=== PATIENT | male | born 1945 ===

== ENCOUNTER 2016-09-27 15:59 | Observation (INO) | payer SELFPAY ==
--- NOTE | 2016-09-27 16:47 | ED PDOC ---
Arrival/HPI - General Chief Complaint: Headache Time Seen by Provider: 09/27/16 16:23 Historian: Patient - History of Present Illness Narrative History of Present Illness (Text): 09/27/16 16:48 A 70 year old male, whose past medical history includes hypertension, presents to the emergency department complaining of slow onset of headache and daily episodes of dizziness for a month. Patient notes dizziness is positional. Patient is compliant with Losartan medications. Sent to emergency department by PMD. Denies any nausea, vomiting, chest pain or any other complaints at this time. PMD: Dr. Cummings Time/Duration: Other (month) Symptom Onset: Sudden Symptom Course: Unchanged Activities at Onset: Rest Context: Home Past Medical History - Provider Review Nursing Documentation Reviewed: Yes - Infectious Disease Hx of Infectious Diseases: None - Cardiac Hx Cardiac Disorders: Yes Hx Hypertension: Yes - Pulmonary Hx Respiratory Disorders: No - Neurological Hx Neurological Disorder: No - HEENT Hx HEENT Disorder: No - Renal Hx Renal Disorder: No - Endocrine/Metabolic Hx Endocrine Disorders: No - Hematological/Oncological Hx Blood Disorders: No - Integumentary Hx Dermatological Disorder: No - Musculoskeletal/Rheumatological Hx Musculoskeletal Disorders: No - Gastrointestinal Hx Gastrointestinal Disorders: No - Genitourinary/Gynecological Hx Genitourinary Disorders: No - Psychiatric Hx Psychophysiologic Disorder: No Hx Substance Use: No - Surgical History Other/Comment: intestinal sx, pt "doesn't know why". - Anesthesia Hx Anesthesia: Yes Hx Anesthesia Reactions: No Family/Social History - Physician Review Nursing Documentation Reviewed: Yes Family/Social History: No Known Family HX Smoking Status: Heavy Smoker > 10 Cigarettes Daily Hx Alcohol Use: No Hx Substance Use: No Allergies/Home Meds Allergies/Adverse Reactions: Allergies No Known Allergies Allergy (Verified 09/27/16 16:09) Home Medications: Home Meds Medication Instructions Recorded Confirmed Losartan [Cozaar] 100 mg PO DAILY 09/27/16 09/27/16 Review of Systems - Physician Review All systems were reviewed & negative as marked: Yes Physical Exam - Physical Exam Narrative Physical Exam (Text): 09/27/16 16:47- Review of Systems Constitutional: Normal. absent: Fatigue, Weight Change, Fevers Eyes: Normal ENT: Normal Respiratory: Normal absent: SOB, Cough, Sputum Cardiovascular: Normal absent: Chest pain, Palpitations, Syncope Gastrointestinal: Normal absent: Abdominal pain, Diarrhea, Nausea, Vomiting Genitourinary: Normal. absent: Dysuria, Frequency, Hematuria Musculoskeletal: Normal. absent: Arthralgias, Back Pain, Neck Pain Skin: Normal Neurological: dizziness, headache absent: Focal Weakness Endocrine: Normal Hemo/Lymphatic: Normal Psychiatric: Normal - Physical exam Patient appears age appropriate, speaking full sentences without difficulty - Systems Exam Head: Present: Atraumatic, Normocephalic Pupils: Present: PERRL Extraocular Muscles: Present: EOMI Conjunctiva: Present: Normal Mouth: Present: Moist Mucous Membranes Neck: Present: Normal Range of Motion. No: MIDLINE TENDERNESS, Paraspinal Tenderness Respiratory/Chest: Present: Clear to Auscultation, Good Air Exchange. No: Respiratory Distress, Accessory Muscle Use, Tachypnic Cardiovascular: Present: Regular Rate and Rhythm, Normal S1, S2, Peripheral Pulses Present. No: Murmurs Abdomen: Present: Normal Bowel Sounds, No: Tenderness, Peritoneal Signs, Rebound, Guarding, Distention Back: Present: Normal Inspection. No: Midline Tenderness, Paraspinal Tenderness Upper Extremity: Present: Normal Inspection. No: Cyanosis, Edema Lower Extremity: Present: Normal Inspection. No: Edema Neurological: Present: GCS=15, Speech Normal, cranial nerves II through XII fully intact with no cerebellar abnormality, neuro-sensory fully intact. HINTS testing unremarkable. No focal neurological deficits. Skin: Present: Warm, Dry, Normal Color. No: Rashes Lymphatic: Present: OX3, NI, NC Psychiatric: Present: Alert, Oriented x 3, Normal Insight, Normal Concentration Vital Signs Reviewed: Yes Vital Signs Temp Pulse Resp BP Pulse Ox 09/27/16 20:25 60 214/89 H 09/27/16 19:30 60 18 197/112 H 96 09/27/16 19:20 65 197/112 H 09/27/16 18:37 60 16 188/109 H 97 09/27/16 17:20 64 16 179/95 H 96 09/27/16 16:09 98.7 F 74 19 220/80 H 97 Temperature: Afebrile Blood Pressure: Hypertensive Pulse: Regular Respiratory Rate: Normal Appearance: Positive for: Well-Appearing, Non-Toxic, Comfortable Pain Distress: None Mental Status: Positive for: Alert and Oriented X 3 Medical Decision Making ED Course and Treatment: 09/27/16 16:44 Impression: A 70 year old male with dizziness and headache. HINTS testing unremarkable. No focal neurological deficits. Differential Diagnosis included but are not limited to: vertigo vs. hypertension Plan: -- EKG -- chest xray -- CT head -- labs -- Urinalysis -- Antivert -- Reassess and disposition Progress Notes: EKG shows NSR at [address]-segment elevations, normal intervals. Interpreted by me. 09/27/16 17:29 chest xray: Creator : AMADO ROSALES MD IMPRESSION: Mild pulmonary venous congestion. No lobar pneumonia. 09/27/16 18:42 CT HEAD WITHOUT CONTRAST Creator : AMADO ROSALES MD IMPRESSION: No acute intracranial abnormality. 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 Moderate chronic microangiopathic changes and mild age-related global parenchymal volume loss. 09/27/16 20:[address] Cummings, asked to admit to hospitalist 09/27/16 20:[address] Hinton, accepted pt to remote tele pt in no distress with no focal neurological deficits on reeval aware of and agrees with plan - Lab Interpretations Lab Results: 09/27/16 16:33 09/27/16 16:33 Lab Results 09/27/16 18:50: Urine Color Yellow, Urine Appearance Clear, Urine pH 6.0, Ur Specific [place] 1.020, Urine Protein Negative, Urine Glucose (UA) Negative, Urine Ketones Negative, Urine Blood Negative, Urine Nitrate Negative, Urine Bilirubin Negative, Urine Urobilinogen 1.0 H, Ur Leukocyte Esterase Negative 09/27/16 16:33: Sodium 141, Potassium 4.0, Chloride 105, Carbon Dioxide 27, Anion Gap 13, BUN 24 H, Creatinine 1.1, Est GFR ( Amer) > 60, Est GFR ( Non-Af Amer) > 60, Random Glucose 100, Calcium 9.2, Total Bilirubin 0.4, AST 26 , ALT 27, Alkaline Phosphatase 125, Total Protein 7.8, Albumin 3.9, Globulin 3.9 , Albumin/Globulin Ratio 1.0 L 09/27/16 16:33: PT 11.0, INR 1.02, APTT 29.1 09/27/16 16:33: WBC 6.6, RBC 4.38, Hgb 13.2 L, Hct 40.1 L, MCV 91.6, MCH 30.1, MCHC 32.9, RDW 13.9, Plt Count 196, MPV 12.7 H, Gran % 44.6 L, Lymph % (Auto) 34.3, [place] % (Auto) 10.9 H, Eos % (Auto) 9.7 H, Baso % (Auto) 0.5, Gran # 2.95, Lymph # 2.3, [place] # 0.7 H, Eos # 0.6, Baso # 0.03 I have reviewed the lab results: Yes - RAD Interpretation Radiology Orders: 09/27/16 16:33 HEAD W/O CONTRAST [CT] Stat CHEST PORTABLE [RAD] Stat - EKG Interpretation Interpreted by ED Physician: Yes Type: 12 lead EKG - Medication Orders Current Medication Orders: Discontinued Medications Clonidine HCl (Catapres) 0.1 mg PO STAT STA Stop: 09/27/16 20:11 Last Admin: 09/27/16 20:25 Dose: 0.1 mg Losartan Potassium (Cozaar) 25 mg PO STAT STA Stop: 09/27/16 18:39 Last Admin: 09/27/16 19:20 Dose: 25 mg Meclizine HCl (Antivert) 25 mg PO STAT STA Stop: 09/27/16 16:34 Last Admin: 09/27/16 16:42 Dose: 25 mg - Scribe Statement The provider has reviewed the documentation as recorded by the [facility] Provider Scribe Attestation: All medical record entries made by the Hermanibrenetta were at my direction and personally dictated by me. I have reviewed the chart and agree that the record accurately reflects my personal performance of the history, physical exam, medical decision making, and the department course for this patient. I have also personally directed, reviewed, and agree with the discharge instructions and disposition. Disposition/Present on Arrival - Present on Arrival Any Indicators Present on Arrival: No History of DVT/PE: No History of Uncontrolled Diabetes: No Urinary Catheter: No History of Decub. Ulcer: No History Surgical Site Infection Following: None - Disposition Have Diagnosis and Disposition been Completed?: Yes Diagnosis: Hypertension Disposition: HOSPITALIZED Disposition Time: 20:54 Patient Plan: Admission Condition: FAIR Referrals: Angelique Cummings MD [Primary Care Provider] - Follow up with primary
[2016-09-27 16:55] LABS: BASO # 0.03 K/mm3 (0.0-2.0); BASO % 0.5 % (0.0-3.0); EOS # 0.6 (0.0-0.7); EOS % 9.7 % (1.5-5.0); GRAN # 2.95 (1.4-6.5); GRAN % 44.6 % (50.0-68.0); HEMOGLOBIN 13.2 gm/dL (14.0-18.0); LYMPH # 2.3 (1.2-3.4); LYMPH % 34.3 % (22.0-35.0); MEAN CELL VOLUME 91.6 fL (80.0-105.0); MEAN CORPUSCULAR HEMOGLOBIN 30.1 pg (25.0-35.0); MEAN CORPUSCULAR HGB CONC 32.9 g/dl (31.0-37.0); MEAN PLATELET VOLUME 12.7 fl (7.0-11.0); MONO # 0.7 (0.1-0.6); MONO % 10.9 % (1.0-6.0); PLATELET COUNT 196 10^3/uL (120.0-450.0); RBC 4.38 10^6/uL (3.5-6.1); RED CELL DISTRIBUTION WIDTH 13.9 % (11.5-14.5); WHITE BLOOD COUNT 6.6 10^3/ul (4.5-11.0)
[2016-09-27 17:03] LABS: ALBUMIN 3.9 g/dL (3.0-4.8); ALT/SGPT 27 U/L (7-56); AST/SGOT 26 U/L (15-59); BLOOD UREA NITROGEN 24 mg/dL (7-21); CALCIUM 9.2 mg/dL (8.4-10.5); GFR AFRICAN-AMERICAN > 60; GFR NON-AFRICAN AMERICAN > 60; INR 1.02 (0.93-1.08); PARTIAL THROMBOPLASTIN TIME 29.1 Seconds (23.7-30.8)
--- NOTE | 2016-09-27 17:28 | RAD ---
HISTORY: cough COMPARISON: No prior. FINDINGS: LUNGS: There is mild pulmonary venous congestion. There is no focal consolidation. PLEURA: No significant pleural effusion identified, no pneumothorax apparent. CARDIOVASCULAR: Normal. OSSEOUS STRUCTURES: No significant abnormalities. VISUALIZED UPPER ABDOMEN: Normal. OTHER FINDINGS: None. IMPRESSION: Mild pulmonary venous congestion. No lobar pneumonia.
--- NOTE | 2016-09-27 18:39 | CT ---
PROCEDURE: CT HEAD WITHOUT CONTRAST. HISTORY: HEARN x2 weeks COMPARISON: None available. TECHNIQUE: Axial computed tomography images were obtained through the head/brain without intravenous contrast. Radiation dose: Total exam DLP = 725.84 mGy-cm. This CT exam was performed using one or more of the following dose reduction techniques: Automated exposure control, adjustment of the mA and/or kV according to patient size, and/or use of iterative reconstruction technique. FINDINGS: HEMORRHAGE: No intracranial hemorrhage. BRAIN: There are old lacunar infarctions in bilateral basal ganglia and thalami, larger on the left. There are moderate chronic microangiopathic changes. There is no mass, mass effect or abnormal extra-axial fluid collection. VENTRICLES: There is mild age-related global parenchymal volume loss and proportionate enlargement of the ventricles and cortical sulci. CALVARIUM: Unremarkable. PARANASAL SINUSES: Predominantly clear. MASTOID AIR CELLS: Predominantly clear. OTHER FINDINGS: None. IMPRESSION: No acute intracranial abnormality. 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 Moderate chronic microangiopathic changes and mild age-related global parenchymal volume loss.
[2016-09-27 19:02] LABS: URINE BILIRUBIN NEGATIVE (NEGATIVE); URINE BLOOD NEGATIVE (NEGATIVE); URINE GLUCOSE (UA) NEGATIVE (NEGATIVE); URINE LEUKOCYTE ESTERASE NEGATIVE Leu/uL (NEGATIVE); URINE NITRATE NEGATIVE (NEGATIVE); URINE PROTEIN NEGATIVE mg/dL (<30 mg/dL)
[2016-09-27 19:07] LABS: URINE APPEARANCE CLEAR (CLEAR); URINE COLOR YELLOW (YELLOW)
[2016-09-27 22:37] VITALS: BMI 21.6
[2016-09-27] MEDS ORDERED: Pneumococcal 23-Valent Vaccine IM ONE (22:37)
[2016-09-28 07:14] LABS: HDL CHOLESTEROL 43 mg/dL (29-60)
[2016-09-28 07:25] LABS: LDL CHOLESTEROL 122 mg/dL (0-129)
--- NOTE | 2016-09-28 08:25 | CP.PCM.HP ---
<SaloNeo - Last Filed: 09/28/16 08:43> History of Present Illness - History of Present Illness History of Present Illness: Mr. Bear is a 70 year old male with a past medical history significant for hypertension who presented with a c/o daily episodes of positional dizziness for a month. Patient is compliant with Losartan medications. Patient denies fevers, chills, nausea, vomiting, diarrhea, and any other associated symptoms. Patient did not indicate any palliative or provocating factors. Patient further states that last year he drank ~ 144 beers from Fri-Sun every week, but abruptly stopped when he started having the aforementioned symptoms. Surg Hx: Denies Med Hx: HTN All: Denies Soc Hx: >.5 ppd; in the past, 144 drinks per week Meds: Reviewed Present on Admission - Present on Admission Any Indicators Present on Admission: No Review of Systems - Constitutional Constitutional: absent: Anorexia, Chills, Weight Loss - EENT Eyes: absent: Change in Vision, Dry Eye, Loss of Peripheral Vision Ears: As Per HPI Nose/Mouth/Throat: absent: Epistaxis, Nasal Congestion, Nasal Discharge - Cardiovascular Cardiovascular: absent: Chest Pain, Chest Pain at Rest, Claudication - Respiratory Respiratory: absent: Dyspnea, Hemoptysis, Dyspnea on Exertion - Gastrointestinal Gastrointestinal: absent: Diarrhea, Nausea, Vomiting, Other - Genitourinary Genitourinary: absent: Change in Urinary Stream, Difficulty Urinating, Dysuria - Musculoskeletal Musculoskeletal: As Per HPI, Abnormal Gait. absent: Arthralgias, Joint Swelling - Neurological Neurological: Headaches. absent: Frequent Falls, Paresthesias, Sensory Deficit Past Patient History - Infectious Disease Hx of Infectious Diseases: None - Past Social History Smoking Status: Light Smoker < 10 Cigarettes Daily - CARDIAC Hx Cardiac Disorders: Yes Hx Hypertension: Yes - PULMONARY Hx Respiratory Disorders: No - NEUROLOGICAL Hx Neurological Disorder: No - HEENT Hx HEENT Problems: Yes (eyeglassses) - RENAL Hx Chronic Kidney Disease: No - ENDOCRINE/METABOLIC Hx Endocrine Disorders: No - HEMATOLOGICAL/ONCOLOGICAL Hx Blood Disorders: No - INTEGUMENTARY Other/Comment: multiple tatoos, surgical scar abd - MUSCULOSKELETAL/RHEUMATOLOGICAL Hx Musculoskeletal Disorders: No Hx Falls: No - GASTROINTESTINAL Hx Gastrointestinal Disorders: No - GENITOURINARY/GYNECOLOGICAL Hx Genitourinary Disorders: No - PSYCHIATRIC Hx Psychophysiologic Disorder: No - SURGICAL HISTORY Other/Comment: intestinal sx, pt "doesn't know why", over 10 yrs ago - ANESTHESIA Hx Anesthesia: Yes Hx Anesthesia Reactions: No Meds Home Medications: Home Medication List Medication Instructions Recorded Confirmed Type Aspirin [Aspirin Chewable] 81 mg PO DAILY #30 ctb 09/29/16 Rx Atorvastatin [Lipitor] 40 mg PO DAILY #30 tab 09/29/16 Rx hydrALAZINE [Apresoline] 25 mg PO BID #60 tab 09/29/16 Rx Allergies/Adverse Reactions: Allergies Allergy/AdvReac Type Severity Reaction Status Date / Time No Known Allergies Allergy Verified 09/27/16 16:09 Physical Exam - Constitutional Appears: No Acute Distress, Unkempt - Head Exam Head Exam: ATRAUMATIC, NORMAL INSPECTION, NORMOCEPHALIC - Eye Exam Eye Exam: EOMI, PERRL. absent: Conjunctival injection Pupil Exam: PERRL - ENT Exam ENT Exam: Mucous Membranes Moist, Normal Exam. absent: Mucous Membranes Dry - Neck Exam Neck exam: Positive for: Full Rom - Respiratory Exam Respiratory Exam: absent: Accessory Muscle Use, Chest Wall Tenderness, Decreased Breath Sounds - Cardiovascular Exam Cardiovascular Exam: REGULAR RHYTHM, RRR - GI/Abdominal Exam GI & Abdominal Exam: Normal Bowel Sounds, Soft. absent: Diminished Bowel Sounds , Distended, Firm, Tenderness - Rectal Exam Rectal Exam: Deferred - Extremities Exam Extremities exam: Negative for: calf tenderness, full ROM, pedal edema - Neurological Exam Neurological exam: Abnormal Gait, Alert, Altered, Oriented x3 Additional comments: Patient had diminished reflexes on left side, as well as trouble with tandem walking Results - Vital Signs Recent Vital Signs: Last Vital Signs Temp 99.5 F 09/28/16 00:00 Pulse 58 L 09/28/16 06:00 Resp 18 09/28/16 02:00 BP 170/92 H 09/28/16 02:00 Pulse Ox 97 09/28/16 02:00 - Labs Result Diagrams: 09/27/16 16:33 09/27/16 16:33 Labs: Laboratory Results - last 24 hr 09/28/16 09/28/16 06:30 06:30 Triglycerides 57 Cholesterol 164 LDL Cholesterol Direct 122 HDL Cholesterol 43 TSH 3rd Generation 2.08 Assessment & Plan - Assessment and Plan (Free Text) Assessment: A/P 1.) HTN Continue Losartan, ASA, Clonidine per MAY 2.) Unstable gait Check carotid U/S MRI Brain 3.) LE swelling ECHO 4.) Heart Healthy Diet 5.) DVT PPHXS Activity PRN <Bernard Hinton P - Last Filed: 09/30/16 06:35> Results - Vital Signs Recent Vital Signs: Last Vital Signs Temp 98.5 F 09/29/16 06:00 Pulse 67 09/29/16 14:00 Resp 20 09/29/16 06:00 BP 190/92 H 09/29/16 12:36 Pulse Ox 97 09/29/16 06:00 - Labs Result Diagrams: 09/29/16 07:00 09/29/16 07:00 Attending/Attestation - Attestation I have personally seen and examined this patient.: Yes I have fully participated in the care of the patient.: Yes I have reviewed all pertinent clinical information: Yes Notes (Text): 09/30/16 06:32 Patient had long standing history of heavy alcoholism, current symptoms of cerebellar or unstable gait was likely from that as symptoms had been gradual over past 6 months when [place] was [place] [facility] [place] will be done due to presence of b/l lacunar infarcts in the basal ganglia area. Plan of MRI, oral thiamine, PT, started ASA, monitor BP see details.
--- NOTE | 2016-09-28 08:51 | CARD ---
APPROVED REPORT EKG Measurement Heart [id number] <Conclusion> Normal sinus rhythm Possible Left atrial enlargement Left axis deviation Left ventricular hypertrophy Nonspecific T wave abnormality Abnormal ECG
[2016-09-28 09:40] LABS: HEMOGLOBIN 12.2 gm/dL (14.0-18.0); MEAN CELL VOLUME 92.3 fL (80.0-105.0); MEAN CORPUSCULAR HEMOGLOBIN 29.3 pg (25.0-35.0); MEAN CORPUSCULAR HGB CONC 31.8 g/dl (31.0-37.0); MEAN PLATELET VOLUME 12.6 fl (7.0-11.0); RBC 4.16 10^6/uL (3.5-6.1); RED CELL DISTRIBUTION WIDTH 14.1 % (11.5-14.5); WHITE BLOOD COUNT 5.8 10^3/ul (4.5-11.0)
[2016-09-28 09:48] LABS: ALBUMIN 3.3 g/dL (3.0-4.8); ALT/SGPT 28 U/L (7-56); AST/SGOT 24 U/L (15-59); BLOOD UREA NITROGEN 20 mg/dL (7-21); CALCIUM 8.6 mg/dL (8.4-10.5); GFR AFRICAN-AMERICAN > 60; GFR NON-AFRICAN AMERICAN > 60
--- NOTE | 2016-09-28 10:45 | CP.PCM.CON ---
History of Present Illness - History of Present Illness History of Present Illness: Mr. Bear is a 70-year-old man with a past medical history of hypertension who presented to the ED with complaints of dizziness that has been progressive over the last several weeks. He was hypertensive in the 220's systolic range and complained of some headache and neck pain. Today, he states that he is feeling a little better, but still has dizziness when he walks. He described it as a spinning sensation and said that it is not associated with changing head movement. It is associated with some nausea, but no vomiting. He does not have visual changes (no blurry vision, double vision or visual loss), sensory changes, or any weakness. He denied chest pain, shortness of breath or GI discomfort. Review of Systems - Review of Systems All systems: reviewed and no additional remarkable complaints except Past Patient History - Infectious Disease Hx of Infectious Diseases: None - Past Social History Smoking Status: Light Smoker < 10 Cigarettes Daily - CARDIAC Hx Cardiac Disorders: Yes Hx Hypertension: Yes - PULMONARY Hx Respiratory Disorders: No - NEUROLOGICAL Hx Neurological Disorder: No - HEENT Hx HEENT Problems: Yes (eyeglassses) - RENAL Hx Chronic Kidney Disease: No - ENDOCRINE/METABOLIC Hx Endocrine Disorders: No - HEMATOLOGICAL/ONCOLOGICAL Hx Blood Disorders: No - INTEGUMENTARY Other/Comment: multiple tatoos, surgical scar abd - MUSCULOSKELETAL/RHEUMATOLOGICAL Hx Musculoskeletal Disorders: No Hx Falls: No - GASTROINTESTINAL Hx Gastrointestinal Disorders: No - GENITOURINARY/GYNECOLOGICAL Hx Genitourinary Disorders: No - PSYCHIATRIC Hx Psychophysiologic Disorder: No - SURGICAL HISTORY Other/Comment: intestinal sx, pt "doesn't know why", over 10 yrs ago - ANESTHESIA Hx Anesthesia: Yes Hx Anesthesia Reactions: No Meds Allergies/Adverse Reactions: Allergies Allergy/AdvReac Type Severity Reaction Status Date / Time No Known Allergies Allergy Verified 09/27/16 16:09 - Medications Medications: Current Medications Aspirin (Ecotrin) 81 mg PO DAILY [facility] Last Admin: 09/28/16 09:12 Dose: 81 mg Losartan Potassium (Cozaar) 100 mg PO DAILY [facility] Last Admin: 09/28/16 09:11 Dose: 100 mg Thiamine HCl (Vitamin B1 Tab) 100 mg PO DAILY [facility] Last Admin: 09/28/16 09:11 Dose: 100 mg Physical Exam - Constitutional Appears: Well - Head Exam Head Exam: ATRAUMATIC, NORMAL INSPECTION, NORMOCEPHALIC - Eye Exam Eye Exam: EOMI, Normal appearance, PERRL - ENT Exam ENT Exam: Mucous Membranes Moist, Normal Exam - Neck Exam Neck exam: Positive for: Normal Inspection - Respiratory Exam Respiratory Exam: Clear to Auscultation Bilateral, NORMAL BREATHING PATTERN - Cardiovascular Exam Cardiovascular Exam: REGULAR RHYTHM, +S1, +S2 - GI/Abdominal Exam GI & Abdominal Exam: Normal Bowel Sounds, Soft. absent: Tenderness - Rectal Exam Rectal Exam: Deferred - Extremities Exam Extremities exam: Positive for: normal inspection - Neurological Exam Neurological exam: Alert, CN II-XII Intact, Normal Gait, Oriented x3, Reflexes Normal - Expanded Neurological Exam Expanded Patient oriented to: person, place, time Cranial nerves: EOM's Intact: Normal, Facial Sensation: Normal, Gag Reflex: Normal, Nystagmus: Normal Cerebellar Function: Finger to Nose: Normal, Heel to Joshi: Normal Upper motor neuron: Babinski Sign: Normal Sensory exam: Lower Extremity Light Touch: Normal, Lower Extremity Pin Prick: Normal, Upper Extremity Light Touch: Normal, Upper Extremity Pin Prick: Normal Neuro motor strength exam: Left Upper Extremity: 5, Right Upper Extremity: 5, Left Lower Extremity: 5, Right Lower Extremity: 5 DTR: Achilles Tendon Left: 2+, Achilles Tendon Right: 2+, Bicep Left: 2+, Bicep Right: 2+, Brachioradialis Left: 2+, Brachioradialis Right: 2+, Patellar Left: 2 +, Patellar Right: 2+, Tricep Left: 2+, Tricep Right: 2+ - Psychiatric Exam Psychiatric exam: Normal Affect, Normal Mood - Skin Skin Exam: Dry, Intact, Normal Color, Warm Results - Vital Signs Recent Vital Signs: Last Vital Signs Temp 99.5 F 09/28/16 00:00 Pulse 65 09/28/16 06:00 Resp 19 09/28/16 06:00 BP 165/95 H 09/28/16 06:00 Pulse Ox 95 09/28/16 06:00 - Labs Result Diagrams: 09/28/16 09:20 09/28/16 06:30 Labs: Laboratory Results - last 24 hr 09/28/16 09/28/16 09/28/16 06:30 06:30 06:30 WBC RBC Hgb Hct MCV MCH MCHC RDW Plt Count MPV Sodium 139 Potassium 4.1 Chloride 106 Carbon Dioxide 27 Anion Gap 10 BUN 20 Creatinine 1.1 Est GFR ( Amer) > 60 Est GFR (Non-Af Amer) > 60 Random Glucose 86 Calcium 8.6 Total Bilirubin 0.5 AST 24 ALT 28 Alkaline Phosphatase 93 Total Protein 6.6 Albumin 3.3 Globulin 3.3 Albumin/Globulin Ratio 1.0 L Triglycerides 57 Cholesterol 164 LDL Cholesterol Direct 122 HDL Cholesterol 43 TSH 3rd Generation 2.08 09/28/16 09:20 WBC 5.8 RBC 4.16 Hgb 12.2 L Hct 38.4 L MCV 92.3 MCH 29.3 MCHC 31.8 RDW 14.1 Plt Count 176 MPV 12.6 H Sodium Potassium Chloride Carbon Dioxide Anion Gap BUN Creatinine Est GFR ( Amer) Est GFR (Non-Af Amer) Random Glucose Calcium Total Bilirubin AST ALT Alkaline Phosphatase Total Protein Albumin Globulin Albumin/Globulin Ratio Triglycerides Cholesterol LDL Cholesterol Direct HDL Cholesterol TSH 3rd Generation - Imaging and Cardiology CT scan - head Status: Image reviewed by me, Report reviewed by me (No acute findings on CT head.) Assessment & Plan (1) Vertigo Assessment and Plan: May be related to hypertension, but we should rule out vertebro-basilar insufficiency with a CTA of the head and neck since he does complain of neck pain and he may be hypertensive to compensate for stenosis. I would recommend continuing aspirin 81, and if the CTA is negative, may start Valium 2 mg BID PRN vertigo. Continue fluids with NS at 75 mL/hr. May consider vestibular rehab as well. Thank you. Status: Acute Priority: High
[2016-09-28] MEDS ORDERED: Iohexol 350 MG/100 ML VIAL ONE (12:02)
--- NOTE | 2016-09-28 14:12 | CT ---
PROCEDURE: CT Angiography of the neck and brain dated 09/28/2016. HISTORY: Rule out VBI COMPARISON: Correlation made with prior noncontrast CT scan brain 09/27/2016 TECHNIQUE: Contiguous helical/ transaxial images of the neck were obtained from the level of the skull-base to the superior mediastinum in the arteriographic phase of enhancement. Coronal and sagittal reformats or also generated. IV contrast dose: 100 cc Omnipaque 350 contrast material. Radiation Dose - DLP: 413.63 mGy-cm This CT exam was performed using one or more of the following dose reduction techniques: Automated exposure control, adjustment of the mA and/or kV according to patient size, and/or use of iterative reconstruction technique. Findings: Minor calcified plaque seen along the aortic arch. The origins of the great vessels however are widely patent. The common carotid arteries, carotid bifurcations and internal carotid arteries are also widely patent without evidence of occlusion or significant stenosis. Some minor partially calcified plaque seen along the posterior margin right carotid bifurcation. . There is also small amount of soft plaque with a tiny at calcified component at the level of the left carotid bifurcation and proximal internal carotid artery associate with a tiny calcified plaque as well. . No evidence to suggest hemodynamically significant stenosis. Distal internal carotid arteries including the petrous, cavernous and supraclinoid segments are of also well opacified and widely patent. There is some very minor asymmetry of the distal cavernous carotid and supraclinoid carotid arteries left-sided which is slightly larger in caliber than the right. . There is also mild asymmetry of the A1 segments left-side of which is larger in caliber than the hypoplastic appearing right side. This is felt to represent a anatomic variation. The distal anterior cerebral arteries are patent and appear relatively symmetric as well. . Minor asymmetry of the M1 segments left-side slightly larger in caliber than the right. The distal are patent and relatively symmetric. Arteries middle cerebral arteries Vertebral arteries are patent throughout, neither of which appears more significantly dominant than the other on. The basilar artery is widely patent as are the proximal posterior cerebral arteries. Distal posterior cerebral arteries appear symmetric. No evidence of large aneurysm nor vascular malformation. Chronic white matter ischemic changes less well seen on this study compared to noncontrast CT scan of the brain 09/27/2016 Mild biapical pleural thickening and parenchymal scarring. Small bleb changes are also present in the right and to a lesser degree left lung apices Impression: There is mild soft plaque seen at the left carotid bifurcation and proximal left internal carotid artery associate with a tiny on calcified component. Tiny at calcified plaque seen along the right carotid bifurcation. No evidence of hemodynamically significant stenosis of the anterior or posterior circulations. The intracranial circulation is also widely patent without evidence of large aneurysm nor vascular malformation. See above discussion for additional details and findings.
[2016-09-28 16:13] VITALS: RESP 20
[2016-09-29 07:39] LABS: HEMOGLOBIN 13.5 gm/dL (14.0-18.0); MEAN CELL VOLUME 90.9 fL (80.0-105.0); MEAN CORPUSCULAR HEMOGLOBIN 29.9 pg (25.0-35.0); MEAN CORPUSCULAR HGB CONC 32.8 g/dl (31.0-37.0); MEAN PLATELET VOLUME 11.9 fl (7.0-11.0); RBC 4.52 10^6/uL (3.5-6.1); RED CELL DISTRIBUTION WIDTH 13.9 % (11.5-14.5); WHITE BLOOD COUNT 7.5 10^3/ul (4.5-11.0)
[2016-09-29 07:51] LABS: ALB/GLOB RATIO 1.1 (1.1-1.8); ALBUMIN 3.9 g/dL (3.0-4.8); ALT/SGPT 27 U/L (7-56); AST/SGOT 21 U/L (15-59); BLOOD UREA NITROGEN 25 mg/dL (7-21); CALCIUM 9.1 mg/dL (8.4-10.5); GFR AFRICAN-AMERICAN > 60; GFR NON-AFRICAN AMERICAN 60
[2016-09-29 08:45] VITALS: TEMP 98.5; O2SAT 97
--- NOTE | 2016-09-29 10:10 | MRI ---
PROCEDURE: MRI BRAIN WITHOUT CONTRAST HISTORY: h/o prior lacunar strokes, unstable gait now COMPARISON: None. TECHNIQUE: Multiplanar, multisequence MR images of the brain were obtained without intravenous contrast enhancement. FINDINGS: HEMORRHAGE: None DWI: No evidence of an acute or early subacute infarction. BRAIN PARENCHYMA: No mass effect or edema. Severe chronic microvascular changes are seen as well as chronic lacunar infarcts. VENTRICLES: Unremarkable. No hydrocephalus. CRANIUM: Unremarkable. ORBITS: Grossly unremarkable. PARANASAL SINUSES/MASTOIDS: Clear VASCULAR SYSTEM: Skull base flow voids intact. OTHER FINDINGS: None. IMPRESSION: Severe chronic microvascular changes in the periventricular white matter and basal ganglia. Chronic lacunar infarcts. No acute intracranial findings
--- NOTE | 2016-09-29 11:34 | US ---
PROCEDURE: Bilateral carotid artery duplex ultrasound HISTORY: Carotid stenosis PHYSICIAN(S): Ric Ordonez MD. TECHNIQUE: Duplex sonography and color-flow Doppler were used to evaluate the carotid bifurcations and limited segments of the vertebral arteries bilaterally. FINDINGS: There is mild smooth heterogeneous plaque noted at the carotid bifurcations bilaterally. The peak systolic velocity in the proximal right internal carotid artery is 70 cm/sec. This corresponds to a 20 to 39% proximal right ICA stenosis. Normal systolic velocities are noted in the proximal right external carotid artery. There is antegrade flow in the right vertebral artery. The peak systolic velocity in the proximal left internal carotid artery is 76 cm/sec. This corresponds to a 20 to 39% proximal left ICA stenosis. Normal systolic velocities are noted in the proximal left external carotid artery. There is antegrade flow in the left vertebral artery. IMPRESSION: 1. Bilateral 20-39% proximal ICA stenoses. 2. Antegrade flow in both vertebral arteries.
[2016-09-29 12:37] VITALS: BP 190/92; PULSE 67
--- NOTE | 2016-09-29 14:01 | CP.PCM.DIS ---
<HarrietAixa - Last Filed: 09/29/16 14:06> Provider - Provider Date of Admission: 09/29/16 08:57 Attending physician: Yris Donnelly MD Primary care physician: Angelique Cummings MD Consults: Neuro: Dr. Irene Cardio: Dr. Jeter Time Spent in preparation of Discharge (in minutes): 35 Hospital Course - Lab Results Lab Results: Most Recent Lab Values WBC 7.5 10^3/ul (4.5-11.0) D 09/29/16 07:00 RBC 4.52 10^6/uL (3.5-6.1) 09/29/16 07:00 Hgb 13.5 gm/dL (14.0-18.0) L 09/29/16 07:00 Hct 41.1 % (42.0-52.0) L 09/29/16 07:00 MCV 90.9 fL (80.0-105.0) 09/29/16 07:00 MCH 29.9 pg (25.0-35.0) 09/29/16 07:00 MCHC 32.8 g/dl (31.0-37.0) 09/29/16 07:00 RDW 13.9 % (11.5-14.5) 09/29/16 07:00 Plt Count 192 10^3/uL (120.0-450.0) 09/29/16 07:00 MPV 11.9 fl (7.0-11.0) H 09/29/16 07:00 Gran % 44.6 % (50.0-68.0) L 09/27/16 16:33 Lymph % (Auto) 34.3 % (22.0-35.0) 09/27/16 16:33 [place] % (Auto) 10.9 % (1.0-6.0) H 09/27/16 16:33 Eos % (Auto) 9.7 % (1.5-5.0) H 09/27/16 16:33 Baso % (Auto) 0.5 % (0.0-3.0) 09/27/16 16:33 Gran # 2.95 (1.4-6.5) 09/27/16 16:33 Lymph # 2.3 (1.2-3.4) 09/27/16 16:33 [place] # 0.7 (0.1-0.6) H 09/27/16 16:33 Eos # 0.6 (0.0-0.7) 09/27/16 16:33 Baso # 0.03 K/mm3 (0.0-2.0) 09/27/16 16:33 PT 11.0 Seconds (9.9-11.8) 09/27/16 16:33 INR 1.02 (0.93-1.08) 09/27/16 16:33 APTT 29.1 Seconds (23.7-30.8) 09/27/16 16:33 Sodium 138 mmol/L (132-148) 09/29/16 07:00 Potassium 4.1 mmol/L (3.6-5.0) 09/29/16 07:00 Chloride 104 mmol/L (95-110) 09/29/16 07:00 Carbon Dioxide 26 mmol/L (21-33) 09/29/16 07:00 Anion Gap 12 (10-20) 09/29/16 07:00 BUN 25 mg/dL (7-21) H 09/29/16 07:00 Creatinine 1.2 mg/dL (0.5-1.4) 09/29/16 07:00 Est GFR ( Amer) > 60 09/29/16 07:00 Est GFR (Non-Af Amer) 60 09/29/16 07:00 Random Glucose 85 mg/dL (70-110) 09/29/16 07:00 Calcium 9.1 mg/dL (8.4-10.5) 09/29/16 07:00 Total Bilirubin 0.5 mg/dL (0.2-1.3) 09/29/16 07:00 AST 21 U/L (15-59) 09/29/16 07:00 ALT 27 U/L (7-56) 09/29/16 07:00 Alkaline Phosphatase 115 U/L (38-133) 09/29/16 07:00 Total Protein 7.4 g/dL (5.8-8.3) 09/29/16 07:00 Albumin 3.9 g/dL (3.0-4.8) 09/29/16 07:00 Globulin 3.5 gm/dL 09/29/16 07:00 Albumin/Globulin Ratio 1.1 (1.1-1.8) 09/29/16 07:00 Triglycerides 57 mg/dL (35-160) 09/28/16 06:30 Cholesterol 164 mg/dL (130-200) 09/28/16 06:30 LDL Cholesterol Direct 122 mg/dL (0-129) 09/28/16 06:30 HDL Cholesterol 43 mg/dL (29-60) 09/28/16 06:30 Vitamin B12 196 pg/mL (239-931) L 09/28/16 06:30 TSH 3rd Generation 2.08 mIU/mL (0.46-4.68) 09/28/16 06:30 Urine Color Yellow (YELLOW) 09/27/16 18:50 Urine Appearance Clear (CLEAR) 09/27/16 18:50 Urine pH 6.0 (4.7-8.0) 09/27/16 18:50 Ur Specific [place] 1.020 (1.005-1.035) 09/27/16 18:50 Urine Protein Negative mg/dL (<30 mg/dL) 09/27/16 18:50 Urine Glucose (UA) Negative mg/dL (NEGATIVE) 09/27/16 18:50 Urine Ketones Negative mg/dL (NEGATIVE) 09/27/16 18:50 Urine Blood Negative (NEGATIVE) 09/27/16 18:50 Urine Nitrate Negative (NEGATIVE) 09/27/16 18:50 Urine Bilirubin Negative (NEGATIVE) 09/27/16 18:50 Urine Urobilinogen 1.0 E.U./dL (<1 E.U./dL) H 09/27/16 18:50 Ur Leukocyte Esterase Negative [place]/uL (NEGATIVE) 09/27/16 18:50 Alcohol, Quantitative < 10 mg/dL (0-10) 09/28/16 12:00 - Hospital Course Hospital Course: This is a 70Y M with PMH HTN and CVA who came for dizziness and unstable gait. On admission, patient's BP was noted to be 220s. Cardiology was consulted. They recommended patient be d/c with Hydralazine 25mg BID in addition to his home BP medication (Losartan 100mg qd). Neurology was consulted who ordered an MRI of brain. MRI showed severe chronic microvascular changes. CTA of neck was done and did not show acute abnormalities. Carotid doppler showed 20-30% stenosis bilaterally. Neurology recommended if all studies negative, give patient short course of Valium for dizziness. Echo was done. Preliminary EF ~56%. Will follow up and call patient with final results. Patient also worked with physical therapy and reports patient can be d/c home. It is noted he had CVA in past and is not on ASA or Lipitor. Patient will receive prescription for both. Patient and are at bedside. Patient reports feeling better and would like to go home. They both understand and agree with discharge plan. Patient will follow up with PMD in 1 week. Recommend that patient should have outpatient stress test. New Medications: - ASA 81mg daily - Lipitor 40mg daily - Hydralazine 25mg BID - Valium 2mg BID prn dizziness x 3 days - Date & Time of H&P Date of H&P: 09/27/16 Time of H&P: 22:00 Discharge Exam - Head Exam Head Exam: ATRAUMATIC, NORMAL INSPECTION, NORMOCEPHALIC - Eye Exam Eye Exam: Normal appearance, PERRL Pupil Exam: NORMAL ACCOMODATION - Respiratory Exam Respiratory Exam: Clear to PA & Lateral, NORMAL BREATHING PATTERN, UNREMARKABLE. absent: Rales, Rhonchi, Wheezes - Cardiovascular Exam Cardiovascular Exam: REGULAR RHYTHM, +S1, +S2. absent: Gallop, Rubs, Systolic Murmur - GI/Abdominal Exam GI & Abdominal Exam: Normal Bowel Sounds, Soft, Unremarkable. absent: Mass, Rebound, Rigid - Extremities Exam Extremities exam: normal inspection - Neurological Exam Neurological exam: Alert, CN II-XII Intact, Oriented x3 - Psychiatric Exam Psychiatric exam: Normal Affect, Normal Mood - Skin Skin Exam: Dry, Intact, Normal Color, Warm Discharge Plan - Discharge Medications Prescriptions: Aspirin [Aspirin Chewable] 81 mg PO DAILY #30 ctb Atorvastatin [Lipitor] 40 mg PO DAILY #30 tab hydrALAZINE [Apresoline] 25 mg PO BID #60 tab - Follow Up Plan Condition: FAIR Disposition: HOME/ ROUTINE Patient education suggested?: Yes Instructions: Chronic Hypertension (DC) Additional Instructions: 1. Follow up with Cardiology as outpatient. Will need outpatient stress test. 2. Follow up with PMD, Dr. Cummings, in 1 week 3. Take Losartan 100mg daily and New medication: Hydralazine 25mg BID 4. Valium PO x 3 days for dizziness. Referrals: Angelique Cummings MD [Primary Care Provider] - <Yris Donnelly - Last Filed: 09/29/16 16:42> Provider - Provider Date of Admission: 09/29/16 08:57 Attending physician: Yris Donnelly MD Primary care physician: Angelique Cummings MD Hospital Course - Lab Results Lab Results: Most Recent Lab Values WBC 7.5 10^3/ul (4.5-11.0) D 09/29/16 07:00 RBC 4.52 10^6/uL (3.5-6.1) 09/29/16 07:00 Hgb 13.5 gm/dL (14.0-18.0) L 09/29/16 07:00 Hct 41.1 % (42.0-52.0) L 09/29/16 07:00 MCV 90.9 fL (80.0-105.0) 09/29/16 07:00 MCH 29.9 pg (25.0-35.0) 09/29/16 07:00 MCHC 32.8 g/dl (31.0-37.0) 09/29/16 07:00 RDW 13.9 % (11.5-14.5) 09/29/16 07:00 Plt Count 192 10^3/uL (120.0-450.0) 09/29/16 07:00 MPV 11.9 fl (7.0-11.0) H 09/29/16 07:00 Gran % 44.6 % (50.0-68.0) L 09/27/16 16:33 Lymph % (Auto) 34.3 % (22.0-35.0) 09/27/16 16:33 [place] % (Auto) 10.9 % (1.0-6.0) H 09/27/16 16:33 Eos % (Auto) 9.7 % (1.5-5.0) H 09/27/16 16:33 Baso % (Auto) 0.5 % (0.0-3.0) 09/27/16 16:33 Gran # 2.95 (1.4-6.5) 09/27/16 16:33 Lymph # 2.3 (1.2-3.4) 09/27/16 16:33 [place] # 0.7 (0.1-0.6) H 09/27/16 16:33 Eos # 0.6 (0.0-0.7) 09/27/16 16:33 Baso # 0.03 K/mm3 (0.0-2.0) 09/27/16 16:33 PT 11.0 Seconds (9.9-11.8) 09/27/16 16:33 INR 1.02 (0.93-1.08) 09/27/16 16:33 APTT 29.1 Seconds (23.7-30.8) 09/27/16 16:33 Sodium 138 mmol/L (132-148) 09/29/16 07:00 Potassium 4.1 mmol/L (3.6-5.0) 09/29/16 07:00 Chloride 104 mmol/L (95-110) 09/29/16 07:00 Carbon Dioxide 26 mmol/L (21-33) 09/29/16 07:00 Anion Gap 12 (10-20) 09/29/16 07:00 BUN 25 mg/dL (7-21) H 09/29/16 07:00 Creatinine 1.2 mg/dL (0.5-1.4) 09/29/16 07:00 Est GFR ( Amer) > 60 09/29/16 07:00 Est GFR (Non-Af Amer) 60 09/29/16 07:00 Random Glucose 85 mg/dL (70-110) 09/29/16 07:00 Calcium 9.1 mg/dL (8.4-10.5) 09/29/16 07:00 Total Bilirubin 0.5 mg/dL (0.2-1.3) 09/29/16 07:00 AST 21 U/L (15-59) 09/29/16 07:00 ALT 27 U/L (7-56) 09/29/16 07:00 Alkaline Phosphatase 115 U/L (38-133) 09/29/16 07:00 Total Protein 7.4 g/dL (5.8-8.3) 09/29/16 07:00 Albumin 3.9 g/dL (3.0-4.8) 09/29/16 07:00 Globulin 3.5 gm/dL 09/29/16 07:00 Albumin/Globulin Ratio 1.1 (1.1-1.8) 09/29/16 07:00 Triglycerides 57 mg/dL (35-160) 09/28/16 06:30 Cholesterol 164 mg/dL (130-200) 09/28/16 06:30 LDL Cholesterol Direct 122 mg/dL (0-129) 09/28/16 06:30 HDL Cholesterol 43 mg/dL (29-60) 09/28/16 06:30 Vitamin B12 196 pg/mL (239-931) L 09/28/16 06:30 TSH 3rd Generation 2.08 mIU/mL (0.46-4.68) 09/28/16 06:30 Urine Color Yellow (YELLOW) 09/27/16 18:50 Urine Appearance Clear (CLEAR) 09/27/16 18:50 Urine pH 6.0 (4.7-8.0) 09/27/16 18:50 Ur Specific [place] 1.020 (1.005-1.035) 09/27/16 18:50 Urine Protein Negative mg/dL (<30 mg/dL) 09/27/16 18:50 Urine Glucose (UA) Negative mg/dL (NEGATIVE) 09/27/16 18:50 Urine Ketones Negative mg/dL (NEGATIVE) 09/27/16 18:50 Urine Blood Negative (NEGATIVE) 09/27/16 18:50 Urine Nitrate Negative (NEGATIVE) 09/27/16 18:50 Urine Bilirubin Negative (NEGATIVE) 09/27/16 18:50 Urine Urobilinogen 1.0 E.U./dL (<1 E.U./dL) H 09/27/16 18:50 Ur Leukocyte Esterase Negative [place]/uL (NEGATIVE) 09/27/16 18:50 Alcohol, Quantitative < 10 mg/dL (0-10) 09/28/16 12:00 Attending/Attestation - Attestation I have personally seen and examined this patient.: Yes I have fully participated in the care of the patient.: Yes I have reviewed all pertinent clinical information, including history, physical exam and plan: Yes Notes (Text): I have seen and examined the patient at bedside. Agree with the note above with the following additions/ exceptions: Briefly this is 70 year old male with history of HTN, CVA who came for evaluation of dizziness which was most likely due to uncontrolled hypertension. MRI showed severe chronic microvascular changes. Neurology recommended short course of Valium for dizziness. Echo was done. Preliminary EF ~56%. PT cleared the patient to go home. Patient will follow up with PMD (Dr Cummings) in 1 week.
--- NOTE | 2016-09-29 18:03 | CP.PCM.CON ---
History of Present Illness - History of Present Illness History of Present Illness: Patient 70 Years Old Male admitted with getting episodes of Headache and Dizzyness. No History of Syncope, Chest Pain, SOB, Palpitations. Review of Systems - Review of Systems Review of Systems: All systems reeviewed and positive mentioned in History. Others were Negative. Past Patient History - Infectious Disease Hx of Infectious Diseases: None - Past Medical History & Family History Past Medical History?: Yes Pertinent Family History: Had Abdominal Surgery due to an Accident. Does not Know Details. - Past Social History Smoking Status: Light Smoker < 10 Cigarettes Daily Alcohol: None Drugs: Denies - CARDIAC Hx Cardiac Disorders: Yes (Hypertension.) Hx Hypertension: Yes - PULMONARY Hx Respiratory Disorders: No - NEUROLOGICAL Hx Neurological Disorder: No - HEENT Hx HEENT Problems: Yes (eyeglassses) - INTEGUMENTARY Other/Comment: multiple tatoos, surgical scar abd - PSYCHIATRIC Hx Psychophysiologic Disorder: No - SURGICAL HISTORY Other/Comment: intestinal sx, pt "doesn't know why", over 10 yrs ago Meds Home Medications: Home Medication List Medication Instructions Recorded Confirmed Type Aspirin [Aspirin Chewable] 81 mg PO DAILY #30 ctb 09/29/16 Rx Atorvastatin [Lipitor] 40 mg PO DAILY #30 tab 09/29/16 Rx hydrALAZINE [Apresoline] 25 mg PO BID #60 tab 09/29/16 Rx Allergies/Adverse Reactions: Allergies Allergy/AdvReac Type Severity Reaction Status Date / Time No Known Allergies Allergy Verified 09/27/16 16:09 - Medications Medications: At Home was on Lisinopril. Physical Exam - Head Exam Head Exam: ATRAUMATIC, NORMAL INSPECTION, NORMOCEPHALIC - Eye Exam Eye Exam: EOMI, Normal appearance, PERRL Pupil Exam: NORMAL ACCOMODATION, PERRL - Neck Exam Neck exam: Positive for: Normal Inspection - Respiratory Exam Respiratory Exam: Clear to Auscultation Bilateral, NORMAL BREATHING PATTERN - Cardiovascular Exam Cardiovascular Exam: +S1, +S2 - GI/Abdominal Exam GI & Abdominal Exam: Bruit, Normal Bowel Sounds, Soft. absent: Tenderness Additional comments: Abdomen: Operation Scar. Otherwise Normal. - Exam Exam: Circumcision, NORMAL INSPECTION External exam: NORMAL EXTERNAL EXAM Speculum exam: NORMAL SPECULUM EXAM Bimanual exam: NORMAL BIMANUAL EXAM Results - Vital Signs Recent Vital Signs: Last Vital Signs Temp 98.5 F 09/29/16 06:00 Pulse 67 09/29/16 14:00 Resp 20 09/29/16 06:00 BP 190/92 H 09/29/16 12:36 Pulse Ox 97 09/29/16 06:00 - Labs Result Diagrams: 09/29/16 07:00 09/29/16 07:00 Assessment & Plan - Assessment and Plan (Free Text) Assessment: Hypertension. Dizzyness. Plan: Hydralazine 25mg BID Added to Therapy. Echo Pending. Stress Test Later when dizzyness improves. - Date & Time Date: 09/29/16 Time: 11:00
--- NOTE | 2016-09-30 09:12 | CARD ---
APPROVED REPORT EXAM: Two-dimensional and M-mode echocardiogram with Doppler and color Doppler. Other Information Quality : [employer] : INDICATION DIZZINESS 2D DIMENSIONS Left Atrium (2D)3.5 (1.6-4.0cm)IVSd1.3 (0.7-1.1cm) LVDd4.2 (3.9-5.9cm)PWd1.3 (0.7-1.1cm) LVDs3.6 (2.5-4.0cm)FS (%) 23.8 % LVEF (%)55.0 (>50%) M-Mode DIMENSIONS Aortic Root3.10 (2.2-3.7cm)Aortic Cusp Exc.1.40 (1.5-2.0cm) Aortic Valve AoV Peak Uagjread445.0cm/s Mitral Valve MV E Nvjuuheg81.9cm/sMV A Zqcntgci72.1cm/sE/A ratio0.5 TDI E/Lateral E'0.0E/Medial E'0.0 Tricuspid Valve TR Peak Upxgxilg302bc/sRAP [id number] Peak Gr.16mmHg [id number] LEFT VENTRICLE The left ventricle is normal size. There is mild concentric left ventricular hypertrophy. The left ventricular function is normal. The left ventricular ejection fraction is within the normal range. There is normal LV segmental wall motion. RIGHT VENTRICLE The right ventricle is normal size. ATRIA The left atrium size is normal. The right atrium size is normal. The interatrial septum is intact with no evidence for an atrial septal defect. AORTIC VALVE The aortic valve is normal in structure. MITRAL VALVE The mitral valve is normal in structure. Mitral regurgitation is trace. TRICUSPID VALVE The tricuspid valve is normal in structure. There is trace tricuspid regurgitation. PULMONIC VALVE The pulmonic valve is not well visualized. GREAT VESSELS The aortic root is normal in size. PERICARDIAL EFFUSION There is no pericardial effusion. <Conclusion> The left ventricle is normal size. There is mild concentric left ventricular hypertrophy. The left ventricular function is normal.
== END 2016-09-29 15:32 | disposition home or self-care (01) ==
LOC: ED 15:59 → UNDOADMOB 20:54 → ERH 20:54 → 3RNO 22:32 → INTOOBSV 09-29 08:57 → OBSVTOIN 09-29 08:57 → UNDODISOB 09-29 15:32
PROVIDERS: ADMIT Internal Medicine; ATTEND Hospitalist
DX: I10 Essential (primary) hypertension (principal); R09.89 Other specified symptoms and signs involving the circulatory and respiratory systems; F17.200 Nicotine dependence, unspecified, uncomplicated; G44.89 Other headache syndrome; R42 Dizziness and giddiness; R26.9 Unspecified abnormalities of gait and mobility
CPT/HCPCS: 36415; 70450; 70496; 70498; 70551; 71010; 80053; 80061; 81003; 82607; 84443; 85025; 85027; 85610; 85730; 93005; 93306; 93880; 97161; 97530; 99285; G0378; G0480; G8978; G8979; J0360; J3420; Q9967

== ENCOUNTER 2017-04-08 15:46 | Inpatient (IN) | payer OTHER ==
--- NOTE | 2017-04-08 16:38 | ED PDOC ---
Arrival/HPI - General Chief Complaint: High Blood Pressure Time Seen by Provider: 04/08/17 16:09 Historian: Patient - History of Present Illness Narrative History of Present Illness (Text): 04/08/17 16:34 71yo male with PMhx of hypertension who present with one week history of dizziness. He described dizziness as positional. The daughter by the bedside states he fell two days, when he was dizzy and injured his right forearm. He reports tinnitus. The daughter states he had similar symptom last year and was referred to ENT, but he didn't see the ENT because of finances. He however denies chest pain, SOB, headache, visual changes, focal weakness, slurred speech , nausea, vomiting, any other complaint. Past Medical History - Provider Review Nursing Documentation Reviewed: Yes - Infectious Disease Hx of Infectious Diseases: None - Cardiac Hx Cardiac Disorders: Yes (Hypertension.) Hx Hypertension: Yes - Pulmonary Hx Respiratory Disorders: No - Neurological Hx Neurological Disorder: No - HEENT Hx HEENT Disorder: Yes (eyeglassses) - Renal Hx Renal Disorder: No - Endocrine/Metabolic Hx Endocrine Disorders: No - Hematological/Oncological Hx Blood Disorders: No - Integumentary Other/Comment: multiple tatoos, surgical scar abd - Musculoskeletal/Rheumatological Hx Musculoskeletal Disorders: No Hx Falls: No - Gastrointestinal Hx Gastrointestinal Disorders: No - Genitourinary/Gynecological Hx Genitourinary Disorders: No - Psychiatric Hx Psychophysiologic Disorder: No Hx Substance Use: No - Surgical History Other/Comment: intestinal sx, pt "doesn't know why", over 10 yrs ago - Anesthesia Hx Anesthesia: Yes Hx Anesthesia Reactions: No Family/Social History - Physician Review Nursing Documentation Reviewed: Yes Family/Social History: Unknown Family HX Smoking Status: Light Smoker < 10 Cigarettes Daily Hx Alcohol Use: No Hx Substance Use: No Allergies/Home Meds Allergies/Adverse Reactions: Allergies No Known Allergies Allergy (Verified 09/27/16 16:09) Home Medications: Home Meds Medication Instructions Recorded Confirmed Losartan/Hydrochlorothiazide 1 each PO DAILY 04/08/17 04/08/17 [Losartan-Hctz 100-12.5 mg Tab] Review of Systems - Physician Review All systems were reviewed & negative as marked: Yes - Review of Systems Constitutional: Normal Eyes: Normal ENT: Normal, Tinnitus Respiratory: Normal Cardiovascular: Normal Gastrointestinal: Normal Genitourinary Male: Normal Musculoskeletal: Arthralgias (Right forearm pain) Skin: Normal Neurological: Dizziness Endocrine: Normal Hemo/Lymphatic: Normal Psychiatric: Normal Physical Exam Vital Signs Reviewed: Yes Vital Signs Temp Pulse Pulse Resp BP BP Pulse Ox 04/08/17 22:02 98.4 F 60 16 156/84 H 98 04/08/17 21:00 62 181/85 H 04/08/17 20:55 55 L 207/103 H 04/08/17 20:02 56 L 16 172/79 H 98 04/08/17 17:00 55 L 16 152/82 H 98 04/08/17 16:48 18 100 04/08/17 15:57 99.4 F 78 16 168/76 H 98 Temperature: Afebrile Blood Pressure: Normal Pulse: Regular Respiratory Rate: Normal Appearance: Positive for: Well-Appearing, Non-Toxic, Comfortable Pain Distress: None Mental Status: Positive for: Alert and Oriented X 3 - Systems Exam Head: Present: Atraumatic, Normocephalic Pupils: Present: PERRL Extroacular Muscles: Present: EOMI Conjunctiva: Present: Normal Mouth: Present: Moist Mucous Membranes Neck: Present: Normal Range of Motion Respiratory/Chest: Present: Clear to Auscultation, Good Air Exchange. No: Respiratory Distress, Accessory Muscle Use Cardiovascular: Present: Regular Rate and Rhythm, Normal S1, S2. No: Murmurs Abdomen: Present: Normal Bowel Sounds. No: Tenderness, Distention, Peritoneal Signs Back: Present: Normal Inspection Upper Extremity: Present: Normal ROM, NORMAL PULSES, Tenderness (Right proximal forearm), Swelling (Right forearm), Neurovascularly Intact. No: Cyanosis, Edema , Erythema (Ecchymosis noted over right forearm), Deformity Lower Extremity: Present: Normal Inspection. No: Edema Neurological: Present: GCS=15, CN II-XII Intact, Speech Normal Skin: Present: Warm, Dry, Normal Color. No: Rashes Psychiatric: Present: Alert, Oriented x 3, Normal Insight, Normal Concentration Medical Decision Making ED Course and Treatment: 04/08/17 16:39 Pt with history of hypertension present with one week history of dizziness. Labs ordered Head CT and Right forearm xray pending Antivert EKG Will re evaluate 04/09/17 01:21 On re evaluation after medication, pt continue complaining of dizziness with sitting or standing. He however don't have any focal neurological deficit. EKG NSR 60bpm LAD Lab was unremarkable Although review of patient's chart, shows that he was seen here in September 2016 for same complaint he will be admitted for further evaluation. He already fell once secondary to the dizziness and stands another chance falling again. Case was DW Dr. Olguin and he accepted pt for admission. - Lab Interpretations Lab Results: 04/08/17 17:15 04/08/17 17:15 Lab Results 04/08/17 17:15: Sodium 141, Potassium 3.8, Chloride 106, Carbon Dioxide 26, Anion Gap 12, BUN 28 H, Creatinine 1.2, Est GFR ( Amer) > 60, Est GFR ( Non-Af Amer) 60, Random Glucose 94, Calcium 9.2, Magnesium 1.8, Total Bilirubin 0.5, AST 38, ALT 40, Alkaline Phosphatase 92, Lactate Dehydrogenase 614, Total Creatine Kinase 153, Troponin I 0.02, Total Protein 7.2, Albumin 3.8, Globulin 3.4, Albumin/Globulin Ratio 1.1 04/08/17 17:15: PT 12.2, INR 1.07, APTT 26.0 04/08/17 17:15: WBC 7.5, RBC 3.89, Hgb 11.9 L, Hct 37.4 L, MCV 96.1, MCH 30.6, MCHC 31.8, RDW 13.3, Plt Count 159, MPV 12.4 H, Gran % 62.7, Lymph % (Auto) 22.2 , [place] % (Auto) 5.6, Eos % (Auto) 9.2 H, Baso % (Auto) 0.3, Gran # 4.70, Lymph # 1.7, [place] # 0.4, Eos # 0.7, Baso # 0.02 - RAD Interpretation Radiology Orders: 04/08/17 16:29 HEAD W/O CONTRAST [CT] Stat 04/08/17 16:30 FOREARM RIGHT [RAD] Stat - Medication Orders Current Medication Orders: Aspirin (Aspirin Chewable) 81 mg PO DAILY [facility] Atorvastatin Calcium (Lipitor) 40 mg PO DAILY [facility] Hydralazine HCl (Apresoline) 10 mg IVP Q6 PRN PRN Reason: SBP > 160 Losartan-Hctz 100-12 (.5 Mg Tab) 1 each PO DAILY [facility] Pantoprazole Sodium (Protonix Ec Tab) 40 mg PO 0600 [facility] Discontinued Medications Hydralazine HCl (Apresoline) 10 mg IVP ONCE ONE Stop: 04/08/17 20:37 Last Admin: 04/08/17 20:55 Dose: 10 mg IVP Administration Document 04/08/17 20:55 SANDER (Rec: 04/08/17 20:[place] [id number]) Charges for Administration # of IVP Administrations 1 MAY Pulse and Blood Pressure Document 04/08/17 20:55 SANDER (Rec: 04/08/17 20:56 [place] [id number]) Pulse Pulse Rate (60-90) 55 Blood Pressure Blood Pressure (100/60-150/90) 207/103 Meclizine HCl (Antivert) 25 mg PO STAT STA Stop: 04/08/17 16:31 Last Admin: 04/08/17 16:47 Dose: 25 mg Disposition/Present on Arrival - Present on Arrival Any Indicators Present on Arrival: No History of DVT/PE: No History of Uncontrolled Diabetes: No Urinary Catheter: No History of Decub. Ulcer: No History Surgical Site Infection Following: None - Disposition Have Diagnosis and Disposition been Completed?: Yes Diagnosis: Vertigo, Hypertension Disposition: HOSPITALIZED Disposition Time: 18:45 Patient Plan: Admission Patient Problems: Current Active Problems Problem Status Onset Vertigo Acute Condition: FAIR
[2017-04-08 17:33] LABS: BASO # 0.02 K/mm3 (0.0-2.0); BASO % 0.3 % (0.0-3.0); EOS # 0.7 (0.0-0.7); EOS % 9.2 % (1.5-5.0); GRAN # 4.7 (1.4-6.5); GRAN % 62.7 % (50.0-68.0); HEMOGLOBIN 11.9 g/dL (14.0-18.0); LYMPH # 1.7 (1.2-3.4); LYMPH % 22.2 % (22.0-35.0); MEAN CELL VOLUME 96.1 fl (80.0-105.0); MEAN CORPUSCULAR HEMOGLOBIN 30.6 pg (25.0-35.0); MEAN CORPUSCULAR HGB CONC 31.8 g/dl (31.0-37.0); MEAN PLATELET VOLUME 12.4 fl (7.0-11.0); MONO # 0.4 (0.1-0.6); MONO % 5.6 % (1.0-6.0); RBC 3.89 10^6/uL (3.5-6.1); RED CELL DISTRIBUTION WIDTH 13.3 % (11.5-14.5); WHITE BLOOD COUNT 7.5 10^3/ul (4.5-11.0)
[2017-04-08 17:48] LABS: ALB/GLOB RATIO 1.1 (1.1-1.8); ALBUMIN 3.8 g/dL (3.0-4.8); ALT/SGPT 40 U/L (7-56); AST/SGOT 38 U/L (17-59); BLOOD UREA NITROGEN 28 mg/dL (7-21); CALCIUM 9.2 mg/dL (8.4-10.5); GFR AFRICAN-AMERICAN > 60; GFR NON-AFRICAN AMERICAN 60; INR 1.07 (0.93-1.08); MAGNESIUM 1.8 mg/dL (1.7-2.2); PROTHROMBIN TIME 12.2 SECONDS (9.4-12.5)
[2017-04-08 17:54] LABS: TROPONIN I 0.02 ng/mL
--- NOTE | 2017-04-08 18:14 | CT ---
PROCEDURE: CT HEAD WITHOUT CONTRAST. HISTORY: s/p trauma/dizziness COMPARISON: 09/27/2016 CT head TECHNIQUE: Axial computed tomography images were obtained through the head/brain without intravenous contrast. Radiation dose: Total exam DLP = 999.56 mGy-cm. This CT exam was performed using one or more of the following dose reduction techniques: Automated exposure control, adjustment of the mA and/or kV according to patient size, and/or use of iterative reconstruction technique. FINDINGS: HEMORRHAGE: No intracranial hemorrhage. BRAIN: No mass effect or edema. Cortical atrophy, periventricular small vessel disease VENTRICLES: Unremarkable. No hydrocephalus. CALVARIUM: Unremarkable. PARANASAL SINUSES: Unremarkable as visualized. No significant inflammatory changes. MASTOID AIR CELLS: Unremarkable as visualized. No inflammatory changes. OTHER FINDINGS: None. IMPRESSION: Macro cardialNormal CT of the Head. No significant interval change compared to the prior examination(s).
--- NOTE | 2017-04-08 18:39 | RAD ---
PROCEDURE: Radiographs of the Right Forearm HISTORY: forearm pain s/p trauma COMPARISON: None available. TECHNIQUE: Frontal and lateral views obtained. FINDINGS: BONES: No fracture or destructive lesion. JOINT SPACES: Unremarkable. OTHER FINDINGS: None. IMPRESSION: Unremarkable radiographs of the right forearm.
--- NOTE | 2017-04-08 19:57 | CARD ---
APPROVED REPORT EKG Measurement Heart [id number] <Conclusion> Normal sinus rhythm Possible Left atrial enlargement Left axis deviation Abnormal ECG
--- NOTE | 2017-04-08 22:10 | CP.PCM.HP ---
<Murali Burgess - Last Filed: 04/09/17 00:10> History of Present Illness - History of Present Illness History of Present Illness: IM H&P for hospitalist service Murali AdityaSANDRA ventura PGY-2 CC: Dizziness HPI: This is a 71 yo M with PMH of HTN who presents complaining of dizziness for 1 year, worsening for the last week. Patient is primarily romanian -speaking, history obtained through [employer] ([id number]). As per patient, the dizziness has been persistently present for over 1 year, unremitting, with no changes in vision, syncopal episodes, or focal weakness, but does report worsening balance (denies room-spinning), resulting in a fall onto his right arm 2 days prior. Denies striking head during the fall, or loss of consciousness. Denies any contributory family history. Tried meclizine in the past, with no relief of symptoms. During a prior ED visit, patient was instructed to follow up with an ENT specialist, but was unable to due to inability to afford the visit. He follows a PMD as able (when able to afford), and reports compliance with his home anti-HTN regimen; however, he reports home BP checks in range of 150's-200's systolic for the last several weeks. Denies fevers/chills, chest pain, shortness of breath, nausea/emesis, dysuria, diarrhea , PO intolerance, focal weakness, or head trauma. Denies room spinning, syncope /near-syncope, blurred vision/grayed-out vision/unilateral or bilateral loss of vision, or floaters in vision. All other ROS in 12-system review negative. No relief of symptoms with meclizine in the ED. Of note, SBP in ED on arrival noted to be 150's, but at time of exam, increased to 170's, then to 200's. Given patient's reported high blood pressures at home as well, concerning for hypertensive urgency. PMH: HTN PSH: denies Family Hx: denies Social Hx: former tobacco user (1 pack per week for approximate 30-35 years, quit > 15 yrs ago), denies alcohol or illicits PMD: Dr. Gay España Present on Admission - Present on Admission Any Indicators Present on Admission: No History of DVT/PE: No History of Uncontrolled Diabetes: No Urinary Catheter: No Review of Systems - Review of Systems All systems: reviewed and no additional remarkable complaints except (as per HPI ) Past Patient History - Infectious Disease Hx of Infectious Diseases: None - Past Medical History & Family History Past Medical History?: Yes - Past Social History Smoking Status: Light Smoker < 10 Cigarettes Daily - CARDIAC Hx Cardiac Disorders: Yes (Hypertension.) Hx Hypertension: Yes - PULMONARY Hx Respiratory Disorders: No - NEUROLOGICAL Hx Neurological Disorder: No - HEENT Hx HEENT Problems: Yes (eyeglassses) - RENAL Hx Chronic Kidney Disease: No - ENDOCRINE/METABOLIC Hx Endocrine Disorders: No - HEMATOLOGICAL/ONCOLOGICAL Hx Blood Disorders: No - INTEGUMENTARY Other/Comment: multiple tatoos, surgical scar abd - MUSCULOSKELETAL/RHEUMATOLOGICAL Hx Musculoskeletal Disorders: No Hx Falls: No - GASTROINTESTINAL Hx Gastrointestinal Disorders: No - GENITOURINARY/GYNECOLOGICAL Hx Genitourinary Disorders: No - PSYCHIATRIC Hx Psychophysiologic Disorder: No Hx Substance Use: No - SURGICAL HISTORY Other/Comment: intestinal sx, pt "doesn't know why", over 10 yrs ago - ANESTHESIA Hx Anesthesia: Yes Hx Anesthesia Reactions: No Meds Allergies/Adverse Reactions: Allergies Allergy/AdvReac Type Severity Reaction Status Date / Time No Known Allergies Allergy Verified 09/27/16 16:09 Physical Exam - Constitutional Appears: Well, Non-toxic, No Acute Distress - Head Exam Head Exam: ATRAUMATIC, NORMAL INSPECTION, NORMOCEPHALIC - Eye Exam Eye Exam: EOMI, Normal appearance. absent: Conjunctival injection, Scleral icterus Pupil Exam: absent: Irregular, Unequal - ENT Exam ENT Exam: Mucous Membranes Moist, Normal Exam - Neck Exam Neck exam: Positive for: Full Rom, Normal Inspection. Negative for: Lymphadenopathy, Tenderness - Respiratory Exam Respiratory Exam: Clear to Auscultation Bilateral, NORMAL BREATHING PATTERN. absent: Accessory Muscle Use, Chest Wall Tenderness, Decreased Breath Sounds, Rales, Rhonchi, Wheezes - Cardiovascular Exam Cardiovascular Exam: REGULAR RHYTHM, RRR, +S1, +S2. absent: Bradycardia, Tachycardia, Irregular Rhythm, JVD, +S4 - GI/Abdominal Exam GI & Abdominal Exam: Normal Bowel Sounds, Soft. absent: Diminished Bowel Sounds , Distended, Firm, Hyperactive Bowel Sounds, Hypoactive Bowel Sounds, Tenderness - Rectal Exam Rectal Exam: Deferred - Extremities Exam Extremities exam: Positive for: normal capillary refill, pedal pulses present. Negative for: calf tenderness, pedal edema, tenderness Additional comments: -normal bilateral LE and L upper extremity appearance -extensive bruising along medial aspect of R upper extremity, from wrist to elbow, but no gross deformity, movement intact and appropriate, mild tenderness to palpation - Neurological Exam Neurological exam: Alert, Oriented x3 Additional comments: awake and alert, moving all extremities spontaneously, following all commands appropriately gross motor and sensory intact and equal bilaterally unable to examine gait due to report of unsteady gait and desire not to ambulate at this time - Psychiatric Exam Psychiatric exam: Normal Affect, Normal Mood - Skin Skin Exam: Dry, Intact, Normal Color (except for bruising as noted in extremities exam), Warm Results - Vital Signs Recent Vital Signs: Last Vital Signs Temp 99.4 F 04/08/17 15:57 Pulse 62 04/08/17 21:00 Resp 16 04/08/17 20:02 BP 181/85 H 04/08/17 21:00 Pulse Ox 98 04/08/17 20:02 - Labs Result Diagrams: 04/08/17 17:15 04/08/17 17:15 Labs: Laboratory Results - last 24 hr 04/08/17 04/08/17 04/08/17 17:15 17:15 17:15 WBC 7.5 RBC 3.89 Hgb 11.9 L Hct 37.4 L MCV 96.1 MCH 30.6 MCHC 31.8 RDW 13.3 Plt Count 159 MPV 12.4 H Gran % 62.7 Lymph % (Auto) 22.2 [place] % (Auto) 5.6 Eos % (Auto) 9.2 H Baso % (Auto) 0.3 Gran # 4.70 Lymph # 1.7 [place] # 0.4 Eos # 0.7 Baso # 0.02 PT 12.2 INR 1.07 APTT 26.0 Sodium 141 Potassium 3.8 Chloride 106 Carbon Dioxide 26 Anion Gap 12 BUN 28 H Creatinine 1.2 Est GFR ( Amer) > 60 Est GFR (Non-Af Amer) 60 Random Glucose 94 Calcium 9.2 Magnesium 1.8 Total Bilirubin 0.5 AST 38 ALT 40 Alkaline Phosphatase 92 Lactate Dehydrogenase 614 Total Creatine Kinase 153 Troponin I 0.02 Total Protein 7.2 Albumin 3.8 Globulin 3.4 Albumin/Globulin Ratio 1.1 Assessment & Plan - Assessment and Plan (Free Text) Assessment: This is a 71 yo M with PMH of HTN who presents complaining of dizziness for 1 year, worsening for the last week. He is being admitted for chronic dizziness, not relieved with Meclizine, and likely hypertensive urgency. Plan: 1) Chronic dizziness -hypertensive urgency vs vertigo vs vestibular disease vs vestibular migraine vs occult stroke vs arrhythmia -Head CT negative for acute disease -SBP in ED 150's-200's, patient reports same at home despite compliance with medications -no relief with meclizine in the ED -EKG in ED NSR, no signs of arrhythmia, and trop negative x1 -denies worsening or relief with position changes, so less likely orthostatic -Continue home HCTZ/Losartan for BP control, adding PRN hydralazine for SBP > 160 -given persistently high blood pressures at home, want to avoid too-aggressive drops in blood pressure, could otherwise cause watershed infarct; goal for now is SBP 160-180, can decrease incrementally per day -Cardio and Neuro consulted, appreciate their recs -continue home Aspirin and Statin due to stroke risk, lipid panel ordered -PT consulted, high fall risk protocol in place 2) HTN -Continue home HCTZ/Losartan for BP control, adding PRN hydralazine for SBP > 160 -given persistently high blood pressures at home, want to avoid too-aggressive drops in blood pressure, could otherwise cause watershed infarct; goal for now is SBP 160-180, can decrease incrementally per day Dispo: Remote telemetry for chronic dizziness/suspected hypertensive urgency, pending Neuro and Cardio evals FEN: heart healthy salt-restricted diet Access: Peripheral IV Consults: Cardio, Neuro, PT Ppx: Protonix for GI, SCDs for DVT (avoid AC as feasible due to fall risk) Patient seen, reviewed, and discussed with attending, Dr. Olguin. Decision To Admit - Pt Status Changed To: Hospital Disposition Of: Inpatient Admission - Admit Certification Admit to Inpatient:: After my assessment, the patient will require hospitalization for at least two midnights. This is because of the severity of symptoms shown, intensity of services needed, and/or the medical risk in this patient being treated as an outpatient. - . Bed Request Type: Remote Telemetry <Marilia Olguin - Last Filed: 04/09/17 04:31> Results - Vital Signs Recent Vital Signs: Last Vital Signs Temp 97.6 F 04/08/17 22:37 Pulse 68 04/08/17 22:37 Resp 18 04/08/17 22:37 BP 164/91 H 04/08/17 22:37 Pulse Ox 98 04/08/17 22:02 - Labs Result Diagrams: 04/08/17 17:15 04/08/17 17:15 Attending/Attestation - Attestation I have personally seen and examined this patient.: Yes I have fully participated in the care of the patient.: Yes I have reviewed all pertinent clinical information: Yes Notes (Text): 04/09/17 04:30 patient was seen when he was in r0m # 11 in the ER. Agree with history , physical examination, assessment and plan.
[2017-04-08 23:01] VITALS: BMI 24.5
[2017-04-09] MEDS: Pantoprazole 40 mg EC Tab PO SCH (06:05)
[2017-04-09 07:20] LABS: URINE BILIRUBIN NEGATIVE (NEGATIVE); URINE BLOOD NEGATIVE (NEGATIVE); URINE GLUCOSE (UA) NEGATIVE (NEGATIVE); URINE LEUKOCYTE ESTERASE NEGATIVE Leu/uL (NEGATIVE); URINE NITRATE NEGATIVE (NEGATIVE); URINE PROTEIN NEGATIVE mg/dL (<30 mg/dL); URINE UROBILINOGEN 0.2 E.U./dL (<1 E.U./dL)
[2017-04-09 07:42] LABS: URINE APPEARANCE CLEAR (CLEAR); URINE COLOR YELLOW (YELLOW)
[2017-04-09 08:22] LABS: BASO # 0.02 K/mm3 (0.0-2.0); BASO % 0.3 % (0.0-3.0); EOS # 0.9 (0.0-0.7); EOS % 11.9 % (1.5-5.0); GRAN # 4.79 (1.4-6.5); GRAN % 61.4 % (50.0-68.0); HEMOGLOBIN 12.3 g/dL (14.0-18.0); LYMPH # 1.6 (1.2-3.4); MEAN CELL VOLUME 95.3 fl (80.0-105.0); MEAN CORPUSCULAR HEMOGLOBIN 30.3 pg (25.0-35.0); MEAN CORPUSCULAR HGB CONC 31.8 g/dl (31.0-37.0); MEAN PLATELET VOLUME 12.7 fl (7.0-11.0); MONO # 0.5 (0.1-0.6); MONO % 6.4 % (1.0-6.0); RBC 4.06 10^6/uL (3.5-6.1); RED CELL DISTRIBUTION WIDTH 13.4 % (11.5-14.5); WHITE BLOOD COUNT 7.8 10^3/ul (4.5-11.0)
[2017-04-09 08:38] LABS: LDL CHOLESTEROL 69 mg/dL (0-129)
[2017-04-09 09:04] LABS: ALB/GLOB RATIO 1.2 (1.1-1.8); ALBUMIN 3.6 g/dL (3.0-4.8); ALT/SGPT 48 U/L (7-56); AST/SGOT 32 U/L (17-59); BLOOD UREA NITROGEN 24 mg/dL (7-21); CALCIUM 8.9 mg/dL (8.4-10.5); GFR AFRICAN-AMERICAN > 60; GFR NON-AFRICAN AMERICAN > 60; HDL CHOLESTEROL 49 mg/dL (29-60); MAGNESIUM 1.9 mg/dL (1.7-2.2)
[2017-04-09] MEDS: LOSARTAN HCTZ PO SCH (09:44)
[2017-04-09 17:52] VITALS: RESP 20
--- NOTE | 2017-04-10 00:27 | CON ---
DATE: 04/09/2017 LOCATION: The patient is in room 371, bed 2. REASON FOR CONSULTATION: Dizziness, hypertension. HISTORY OF PRESENT ILLNESS: The patient is a 71-year-old male who speaks Thai, states that he has dizziness since last one year without any palpitation, chest pain or shortness of breath. No loss of vision. He states 2 days ago, he fell on his right arm. Denies any nausea or vomiting. The patient states that he was told to have high blood pressure, he stopped the medications, he was only taking one aspirin a day. PAST MEDICAL HISTORY: Positive for hypertension. PERSONAL HISTORY: Used to smoke 1 pack a day until 15 years ago, stopped since last 15 years. Denies any alcohol drinking or any other drugs. FAMILY HISTORY: Not significant. MEDICATIONS: At home, the patient is only taking aspirin and he stopped other medications, presumably for high blood pressure. He stopped on his own. REVIEW OF SYSTEMS: All the system reviewed, positive mentioned in the history, otherwise negative. PHYSICAL EXAMINATION: VITAL SIGNS: Blood pressure 140/70. Blood pressure in 3 positions; lying down 119/68, sitting 132/76, standing 146/80, so there is no postural hypotension. NECK: JVP low. LUNGS: Clear. CARDIOVASCULAR: S1, S2. ABDOMEN: Soft, no tenderness. No organomegaly. Bowel sounds normal. EXTREMITIES: No clubbing. No cyanosis. No edema of feet. LABORATORY DATA: WBC 7.8, hemoglobin 12.3, hematocrit 38.7, platelets 167. Sodium 140, potassium 3.7, BUN 24, creatinine 1.1, calcium 8.9, phosphorus and magnesium normal. Total protein and albumin normal. TSH 0.86. CT scan of the head, no significant change compared to the prior examination. Macro-cardial, normal CT of the head. EKG showed normal sinus rhythm, left axis deviation. Troponin negative. TSH 0.86. BUN 24, other labs were normal. DIAGNOSES: Syncope, hypertension. The patient is on meclizine 25 mg t.i.d, aspirin 81 daily, losartan 100 mg daily, Lipitor 40 daily, Protonix 40 daily. On monitor, the patient did not show any arrhythmia so far. The patient's dizziness does not seem to be related to cardiac etiology. The patient also on meclizine 25 t.i.d., aspirin 81 mg daily, losartan 100 daily, metoprolol 25 b.i.d., Lipitor 40 daily, Protonix 40 daily. We will continue present therapy. We will monitor for any arrhythmia. We will follow with you. Aislinn Jeter MD
[2017-04-10] MEDS: Pantoprazole 40 mg EC Tab PO SCH (07:13)
[2017-04-10 07:30] VITALS: TEMP 97.9; O2SAT 96
[2017-04-10 08:51] LABS: BASO # 0.01 K/mm3 (0.0-2.0); BASO % 0.1 % (0.0-3.0); EOS # 0.8 (0.0-0.7); EOS % 10.8 % (1.5-5.0); GRAN # 4.65 (1.4-6.5); GRAN % 63.1 % (50.0-68.0); HEMOGLOBIN 12.7 g/dL (14.0-18.0); LYMPH # 1.4 (1.2-3.4); LYMPH % 18.3 % (22.0-35.0); MEAN CELL VOLUME 95.8 fl (80.0-105.0); MEAN CORPUSCULAR HEMOGLOBIN 31.1 pg (25.0-35.0); MEAN CORPUSCULAR HGB CONC 32.4 g/dl (31.0-37.0); MONO # 0.6 (0.1-0.6); MONO % 7.7 % (1.0-6.0); RBC 4.09 10^6/uL (3.5-6.1); RED CELL DISTRIBUTION WIDTH 13.1 % (11.5-14.5); WHITE BLOOD COUNT 7.4 10^3/ul (4.5-11.0)
[2017-04-10 09:08] LABS: ALB/GLOB RATIO 1.1 (1.1-1.8); ALBUMIN 3.6 g/dL (3.0-4.8); ALT/SGPT 41 U/L (7-56); AST/SGOT 26 U/L (17-59); BLOOD UREA NITROGEN 27 mg/dL (7-21); GFR AFRICAN-AMERICAN > 60; GFR NON-AFRICAN AMERICAN 60; MAGNESIUM 1.9 mg/dL (1.7-2.2)
--- NOTE | 2017-04-10 09:17 | CP.PCM.PN ---
Subjective - Date & Time of Evaluation Date of Evaluation: 04/10/17 Time of Evaluation: 09:13 - Subjective Subjective: Mr. Bear was seen and examined at the bedside. He is alert, oriented. He speak mainly Pashto, used staff to interpret.He states of experiencing blurred vision especially with his left eye and very minimal dizziness. He further claims of experiencing very mild headache, located in his frontal area, non radiating, with pain scale of 2/10.He denies any diplopia, numbness, weakness, nausea, or vomiting. He further states that since his blood pressure has been controlled that he feels better. He is able to follow simple commands. There was no untoward events overnight. Objective - Vital Signs/Intake and Output Vital Signs (last 24 hours): Temp Pulse Resp BP Pulse Ox 97.9 F 58 L 20 140/70 96 04/10/17 06:00 04/10/17 06:00 04/10/17 06:00 04/10/17 06:00 04/10/17 06:00 - Medications Medications: Current Medications Aspirin (Aspirin Chewable) 81 mg PO DAILY [facility] Last Admin: 04/09/17 09:43 Dose: 81 mg Atorvastatin Calcium (Lipitor) 40 mg PO DAILY [facility] Last Admin: 04/09/17 09:43 Dose: 40 mg Hydralazine HCl (Apresoline) 10 mg IVP Q6 PRN PRN Reason: SBP > 160 Losartan Potassium (Cozaar) 100 mg PO DAILY [facility] Last Admin: 04/09/17 13:57 Dose: 100 mg Meclizine HCl (Antivert) 25 mg PO TID [facility] Last Admin: 04/09/17 18:10 Dose: 25 mg Metoprolol Tartrate (Lopressor) 25 mg PO BID [facility] Last Admin: 04/09/17 18:10 Dose: Not Given Losartan-Hctz 100-12 (.5 Mg Tab) 1 each PO DAILY [facility] Last Admin: 04/09/17 09:44 Dose: Not Given Pantoprazole Sodium (Protonix Ec Tab) 40 mg PO 0600 [facility] Last Admin: 04/10/17 07:13 Dose: 40 mg - Labs Labs: 04/10/17 08:00 04/10/17 08:00 PT 12.2 SECONDS (9.4-12.5) 04/08/17 17:15 INR 1.07 (0.93-1.08) 04/08/17 17:15 APTT 26.0 Seconds (25.1-36.5) 04/08/17 17:15 - Constitutional Appears: No Acute Distress - Head Exam Head Exam: NORMAL INSPECTION - Eye Exam Additional comments: uneven - right eye 2 mm and brisk, left eye 3 mm and sluggish. - Neurological Exam Neurological Exam: Alert, Awake, Oriented x3 Neuro motor strength exam: Left Upper Extremity: 5, Right Upper Extremity: 5, Left Lower Extremity: 5, Right Lower Extremity: 5 Additional comments: He is able to follow simple commands such as field accommodation, finger to nose test, and strength test. Sensation remains intact. Assessment and Plan (1) Vertigo Assessment & Plan: Case discussed with Dr. Neumann, continue current medical regimen. Recommend CTA of the head and neck, MRI of the brain, echocardiogram, and carotid doppler. Status: Acute
[2017-04-10] MEDS: LOSARTAN HCTZ PO SCH (10:06)
[2017-04-10 10:11] VITALS: BP 124/72; PULSE 63
[2017-04-10] MEDS ORDERED: Gadodiamide 287 MG/ML VIAL (15ML) IV ONE (11:28)
--- NOTE | 2017-04-10 12:36 | MRI ---
PROCEDURE: MRI BRAIN WITH AND WITHOUT CONTRAST HISTORY: dizziness COMPARISON: None. TECHNIQUE: Multiplanar, multisequence MR images of the brain were obtained with and without intravenous contrast enhancement. 15 cc of Omniscan FINDINGS: HEMORRHAGE: None DWI: No evidence of an acute or early subacute infarction. BRAIN PARENCHYMA: No mass,mass effect or edema. Severe chronic microvascular changes are seen in the white matter and basal ganglia. ENHANCEMENT: No abnormal intracranial enhancement. VENTRICLES: Unremarkable. No hydrocephalus. CRANIUM: Unremarkable. ORBITS: Grossly unremarkable. PARANASAL SINUSES/MASTOIDS: Clear VASCULAR SYSTEM: Skull base flow voids intact. OTHER FINDINGS: None . IMPRESSION: Severe chronic microvascular changes are seen in the white matter and basal ganglia. No acute intracranial findings
--- NOTE | 2017-04-10 12:38 | MRI ---
PROCEDURE: Magnetic Resonance Angiography Brain HISTORY: dizziness COMPARISON: None available. TECHNIQUE: 3D time of flight MR angiography of the intracranial arteries was performed. Rotating maximum intensity projection images were generated. FINDINGS: INTERNAL CAROTID ARTERIES: Unremarkable. The skull base, petrous, cavernous and supraclinoid segments are bilaterally widely patient. ANTERIOR CEREBRAL ARTERIES: Unremarkable. A1 and A2 segments are widely patent. Smaller distal branches unremarkable, as visualized. MIDDLE CEREBRAL ARTERIES: Unremarkable. M1 and M2 segments are widely patent. Perisylvian branches grossly symmetric. POSTERIOR CIRCULATION: Basilar Artery: Unremarkable. Distal Vertebral Arteries: Unremarkable. Posterior Cerebral Arteries: Unremarkable. Posterior Inferior Cerebellar Arteries: Unremarkable. ANEURYSM/ VASCULAR MALFORMATIONS: None. OTHER FINDINGS: None. IMPRESSION: Unremarkable MR angiography of the brain.
--- NOTE | 2017-04-10 12:39 | MRI ---
PROCEDURE: MR Angiography of the neck without contrast HISTORY: dizziness COMPARISON: None available. TECHNIQUE: 3D [id number] angiography of the neck was performed. Rotating maximum intensity projection images of the cervical carotid and vertebral arteries were generated. The origins of the common carotid arteries were not visualized, which is a limitation inherent to the non-contrast time of flight technique. FINDINGS: RIGHT CAROTID ARTERIES: Common Carotid Artery: Normal. Carotid Bifurcation: Normal. Internal Carotid Artery:Normal. External Carotid Artery (proximal branches): Normal. LEFT CAROTID ARTERIES: Common Carotid Artery: Normal. Carotid Bifurcation: Normal. Internal Carotid Artery:Normal. External Carotid Artery (proximal branches): Normal. VERTEBRAL ARTERIES: Right Vertebral Artery: Normal. Left Vertebral Artery: Normal. OTHER FINDINGS: None. IMPRESSION: Normal MR Angiography of the neck.
--- NOTE | 2017-04-10 13:01 | CP.PCM.DIS ---
<Emery Lomax - Last Filed: 04/10/17 12:59> Provider - Provider Date of Admission: 04/08/17 20:35 Attending physician: Aislinn Kinney MD Primary care physician: Jp España MD Consults: Neuro: Neumann Time Spent in preparation of Discharge (in minutes): 70 Hospital Course - Lab Results Lab Results: Most Recent Lab Values WBC 7.4 10^3/ul (4.5-11.0) 04/10/17 08:00 RBC 4.09 10^6/uL (3.5-6.1) 04/10/17 08:00 Hgb 12.7 g/dL (14.0-18.0) L 04/10/17 08:00 Hct 39.2 % (42.0-52.0) L 04/10/17 08:00 MCV 95.8 fl (80.0-105.0) 04/10/17 08:00 MCH 31.1 pg (25.0-35.0) 04/10/17 08:00 MCHC 32.4 g/dl (31.0-37.0) 04/10/17 08:00 RDW 13.1 % (11.5-14.5) 04/10/17 08:00 Plt Count 155 10^3/uL (120.0-450.0) 04/10/17 08:00 MPV 13.0 fl (7.0-11.0) H 04/10/17 08:00 Gran % 63.1 % (50.0-68.0) 04/10/17 08:00 Lymph % (Auto) 18.3 % (22.0-35.0) L 04/10/17 08:00 [place] % (Auto) 7.7 % (1.0-6.0) H 04/10/17 08:00 Eos % (Auto) 10.8 % (1.5-5.0) H 04/10/17 08:00 Baso % (Auto) 0.1 % (0.0-3.0) 04/10/17 08:00 Gran # 4.65 (1.4-6.5) 04/10/17 08:00 Lymph # 1.4 (1.2-3.4) 04/10/17 08:00 [place] # 0.6 (0.1-0.6) 04/10/17 08:00 Eos # 0.8 (0.0-0.7) H 04/10/17 08:00 Baso # 0.01 K/mm3 (0.0-2.0) 04/10/17 08:00 PT 12.2 SECONDS (9.4-12.5) 04/08/17 17:15 INR 1.07 (0.93-1.08) 04/08/17 17:15 APTT 26.0 Seconds (25.1-36.5) 04/08/17 17:15 Sodium 139 mmol/L (132-148) 04/10/17 08:00 Potassium 3.9 mmol/L (3.6-5.0) 04/10/17 08:00 Chloride 108 mmol/L (98-107) H 04/10/17 08:00 Carbon Dioxide 26 mmol/L (21-33) 04/10/17 08:00 Anion Gap 10 (10-20) 04/10/17 08:00 BUN 27 mg/dL (7-21) H 04/10/17 08:00 Creatinine 1.2 mg/dl (0.8-1.5) 04/10/17 08:00 Est GFR ( Amer) > 60 04/10/17 08:00 Est GFR (Non-Af Amer) 60 04/10/17 08:00 Random Glucose 90 mg/dL (70-110) 04/10/17 08:00 Calcium 9.0 mg/dL (8.4-10.5) 04/10/17 08:00 Phosphorus 2.7 mg/dL (2.5-4.5) 04/10/17 08:00 Magnesium 1.9 mg/dL (1.7-2.2) 04/10/17 08:00 Total Bilirubin 0.5 mg/dL (0.2-1.3) 04/10/17 08:00 AST 26 U/L (17-59) 04/10/17 08:00 ALT 41 U/L (7-56) 04/10/17 08:00 Alkaline Phosphatase 88 U/L (38-126) 04/10/17 08:00 Lactate Dehydrogenase 614 U/L (333-699) 04/08/17 17:15 Total Creatine Kinase 153 U/L (35-230) 04/08/17 17:15 Troponin I 0.02 ng/mL 04/08/17 17:15 Total Protein 6.7 g/dL (5.8-8.3) 04/10/17 08:00 Albumin 3.6 g/dL (3.0-4.8) 04/10/17 08:00 Globulin 3.1 gm/dL 04/10/17 08:00 Albumin/Globulin Ratio 1.1 (1.1-1.8) 04/10/17 08:00 Triglycerides 84 mg/dL (35-160) 04/09/17 07:30 Cholesterol 140 mg/dL (130-200) 04/09/17 07:30 LDL Cholesterol Direct 69 mg/dL (0-129) 04/09/17 07:30 HDL Cholesterol 49 mg/dL (29-60) 04/09/17 07:30 TSH 3rd Generation 0.86 mIU/mL (0.46-4.68) 04/09/17 06:40 Urine Color Yellow (YELLOW) 04/09/17 06:55 Urine Appearance Clear (CLEAR) 04/09/17 06:55 Urine pH 6.0 (4.7-8.0) 04/09/17 06:55 Ur Specific Dewar 1.020 (1.005-1.035) 04/09/17 06:55 Urine Protein Negative mg/dL (<30 mg/dL) 04/09/17 06:55 Urine Glucose (UA) Negative mg/dL (NEGATIVE) 04/09/17 06:55 Urine Ketones Negative mg/dL (NEGATIVE) 04/09/17 06:55 Urine Blood Negative (NEGATIVE) 04/09/17 06:55 Urine Nitrate Negative (NEGATIVE) 04/09/17 06:55 Urine Bilirubin Negative (NEGATIVE) 04/09/17 06:55 Urine Urobilinogen 0.2 E.U./dL (<1 E.U./dL) 04/09/17 06:55 Ur Leukocyte Esterase Negative Torin/uL (NEGATIVE) 04/09/17 06:55 - Hospital Course Hospital Course: 71 yo M with PMH of HTN who presents complaining of dizziness for 1 year, worsening for the last week and fall on R arm. In the ED Basic labwork was done. Head CT negative for acute disease. Blood pressure elevated 150's- 200's, with max of 207 systolic. Forearm Xray was negative. EKG showed 60bpm with NSR LAD and possible L atrial enlargement. Pt was here presenting with similar symptoms on 09/2016 and had full work up done including MRI/MRA, echo, carotid Doppler which were mainly unremarkable. Meclizine was started. Orthostatics were negative. Cardiology and neurology was consulted. Pt was admitted for HTN urgency and Dizziness. Cardiology was consulted and stated that dizziness is unlikely cardiovascular in nature. Neurology recommended getting an MRI brain and MRA of head and neck which did not show any acute findings. PT evaluated the patient and was cleared fpr discharge. Today the patient states that his dizziness has much improved. Pt was taking Losartan/ HCTZ at home. HCTZ was d/garry. Metoprolol was started here accompanied with home Losartan for blood pressure control. Meclizine PRN as needed. If dizziness worsens he should follow up with ENT as an outpatient to r/o any inner ear pathology. Pt to follow up with his PMD in 1 week. Discharge Exam - Head Exam Head Exam: NORMAL INSPECTION Discharge Plan - Discharge Medications Prescriptions: Losartan [Cozaar] 100 mg PO DAILY #30 tab Meclizine [Meclizine*] 25 mg PO TID PRN #15 tab PRN Reason: Dizziness Metoprolol Tartrate [Lopressor] 25 mg PO BID #60 tab - Follow Up Plan Condition: FAIR Disposition: HOME/ ROUTINE Instructions: Vertigo (DC), Chronic Hypertension (DC), Dizziness (GEN) Additional Instructions: 1. begin new medications as prescribed. 2. discontinue losartan/hydrochlorothiazide. 3. if symptoms persist or worsen return to the nearest ER. 4. follow up with your medical doctor in one week. Referrals: Jp España MD [Primary Care Provider] - <Aislinn Kinney - Last Filed: 04/10/17 16:00> Provider - Provider Date of Admission: 04/08/17 20:35 Attending physician: Aislinn Kinney MD Primary care physician: Jp España MD Hospital Course - Lab Results Lab Results: Most Recent Lab Values WBC 7.4 10^3/ul (4.5-11.0) 04/10/17 08:00 RBC 4.09 10^6/uL (3.5-6.1) 04/10/17 08:00 Hgb 12.7 g/dL (14.0-18.0) L 04/10/17 08:00 Hct 39.2 % (42.0-52.0) L 04/10/17 08:00 MCV 95.8 fl (80.0-105.0) 04/10/17 08:00 MCH 31.1 pg (25.0-35.0) 04/10/17 08:00 MCHC 32.4 g/dl (31.0-37.0) 04/10/17 08:00 RDW 13.1 % (11.5-14.5) 04/10/17 08:00 Plt Count 155 10^3/uL (120.0-450.0) 04/10/17 08:00 MPV 13.0 fl (7.0-11.0) H 04/10/17 08:00 Gran % 63.1 % (50.0-68.0) 04/10/17 08:00 Lymph % (Auto) 18.3 % (22.0-35.0) L 04/10/17 08:00 [place] % (Auto) 7.7 % (1.0-6.0) H 04/10/17 08:00 Eos % (Auto) 10.8 % (1.5-5.0) H 04/10/17 08:00 Baso % (Auto) 0.1 % (0.0-3.0) 04/10/17 08:00 Gran # 4.65 (1.4-6.5) 04/10/17 08:00 Lymph # 1.4 (1.2-3.4) 04/10/17 08:00 [place] # 0.6 (0.1-0.6) 04/10/17 08:00 Eos # 0.8 (0.0-0.7) H 04/10/17 08:00 Baso # 0.01 K/mm3 (0.0-2.0) 04/10/17 08:00 PT 12.2 SECONDS (9.4-12.5) 04/08/17 17:15 INR 1.07 (0.93-1.08) 04/08/17 17:15 APTT 26.0 Seconds (25.1-36.5) 04/08/17 17:15 Sodium 139 mmol/L (132-148) 04/10/17 08:00 Potassium 3.9 mmol/L (3.6-5.0) 04/10/17 08:00 Chloride 108 mmol/L (98-107) H 04/10/17 08:00 Carbon Dioxide 26 mmol/L (21-33) 04/10/17 08:00 Anion Gap 10 (10-20) 04/10/17 08:00 BUN 27 mg/dL (7-21) H 04/10/17 08:00 Creatinine 1.2 mg/dl (0.8-1.5) 04/10/17 08:00 Est GFR ( Amer) > 60 04/10/17 08:00 Est GFR (Non-Af Amer) 60 04/10/17 08:00 Random Glucose 90 mg/dL (70-110) 04/10/17 08:00 Calcium 9.0 mg/dL (8.4-10.5) 04/10/17 08:00 Phosphorus 2.7 mg/dL (2.5-4.5) 04/10/17 08:00 Magnesium 1.9 mg/dL (1.7-2.2) 04/10/17 08:00 Total Bilirubin 0.5 mg/dL (0.2-1.3) 04/10/17 08:00 AST 26 U/L (17-59) 04/10/17 08:00 ALT 41 U/L (7-56) 04/10/17 08:00 Alkaline Phosphatase 88 U/L (38-126) 04/10/17 08:00 Lactate Dehydrogenase 614 U/L (333-699) 04/08/17 17:15 Total Creatine Kinase 153 U/L (35-230) 04/08/17 17:15 Troponin I 0.02 ng/mL 04/08/17 17:15 Total Protein 6.7 g/dL (5.8-8.3) 04/10/17 08:00 Albumin 3.6 g/dL (3.0-4.8) 04/10/17 08:00 Globulin 3.1 gm/dL 04/10/17 08:00 Albumin/Globulin Ratio 1.1 (1.1-1.8) 04/10/17 08:00 Triglycerides 84 mg/dL (35-160) 04/09/17 07:30 Cholesterol 140 mg/dL (130-200) 04/09/17 07:30 LDL Cholesterol Direct 69 mg/dL (0-129) 04/09/17 07:30 HDL Cholesterol 49 mg/dL (29-60) 04/09/17 07:30 TSH 3rd Generation 0.86 mIU/mL (0.46-4.68) 04/09/17 06:40 Urine Color Yellow (YELLOW) 04/09/17 06:55 Urine Appearance Clear (CLEAR) 04/09/17 06:55 Urine pH 6.0 (4.7-8.0) 04/09/17 06:55 Ur Specific Dewar 1.020 (1.005-1.035) 04/09/17 06:55 Urine Protein Negative mg/dL (<30 mg/dL) 04/09/17 06:55 Urine Glucose (UA) Negative mg/dL (NEGATIVE) 04/09/17 06:55 Urine Ketones Negative mg/dL (NEGATIVE) 04/09/17 06:55 Urine Blood Negative (NEGATIVE) 04/09/17 06:55 Urine Nitrate Negative (NEGATIVE) 04/09/17 06:55 Urine Bilirubin Negative (NEGATIVE) 04/09/17 06:55 Urine Urobilinogen 0.2 E.U./dL (<1 E.U./dL) 04/09/17 06:55 Ur Leukocyte Esterase Negative Torin/uL (NEGATIVE) 04/09/17 06:55 Attending/Attestation - Attestation I have personally seen and examined this patient.: Yes I have fully participated in the care of the patient.: Yes I have reviewed all pertinent clinical information, including history, physical exam and plan: Yes Notes (Text): 04/10/17 15:55 Patient was seen and examined with phlebotomist medical lab assistant. Agreed with resident assessment and plan. 71 yrs old male with PMH of HTN,Hyperlipidemia, chronic dizziness was admitted with worsening dizziness and uncontrolled HTN. Patient Neurology work up is negative.CT head,MRI of Brain and MRA of neck is unremarkable.Telemetry was negative for any arrhythmia. Blood pressure is better controlled. Patient was evaluated by PT and felt safe to go home. He has chronic Tinnitus and will follow up with ENT as out patient. \ Management plan was discussed in detail with patient Education was provided. 04/10/17 16:00
--- NOTE | 2017-04-10 18:12 | PN ---
DATE: 04/10/2017 LOCATION: The patient is in room 371, bed 2. REASON FOR CONSULTATION: Dizziness, hypertension. SUBJECTIVE: The patient is a 71-year-old male, who has dizziness persistent since last one year without any chest pain, shortness of breath or palpitation. The patient is lying flat in bed without any cardiac symptoms. PHYSICAL EXAMINATION: VITAL SIGNS: Blood pressure 136/76, respirations 20, pulse 84, temperature 98.0. HEENT: Head is normocephalic. Eyes; pupils are normal. Conjunctivae normal. Nose and throat normal. NECK: JVP low. Carotids equal. THORAX: AP diameter normal. LUNGS: Clear. CARDIOVASCULAR: S1 and S2. ABDOMEN: Soft. No tenderness. No organomegaly. Bowel sounds normal. EXTREMITIES: No clubbing. No cyanosis. LABORATORY DATA: WBC 7.4, hemoglobin 12.7, hematocrit 39.2, platelets 155. Sodium 139, potassium 3.9, BUN 27, creatinine 1.2, glucose 90, phosphorus 2.7, magnesium 1.9. AST and ALT normal. Total protein and albumin normal. MRA of neck showed normal angiography. Brain MRA showed severe chronic macrovascular changes in the white matter and basal ganglia. No acute intracranial findings. DIAGNOSES: Syncope, hypertension. Continue meclizine 25 mg t.i.d, aspirin 81 mg daily, Cozaar 100 mg daily, Lipitor 40 daily, Protonix 40 daily. Echo, Cardizem has been already ordered. We will follow the echocardiogram when it is done with this report. Aislinn Jeter MD
== END 2017-04-10 15:17 | disposition home or self-care (01) | DRG 134 ==
LOC: ED 15:46 → ERH 20:35 → 3RSO 22:36
PROVIDERS: ADMIT Internal Medicine; ATTEND Internal Medicine
DX: I16.0 Hypertensive urgency (principal); E78.5 Hyperlipidemia, unspecified; R42 Dizziness and giddiness; R55 Syncope and collapse; H93.19 Tinnitus, unspecified ear; Z87.891 Personal history of nicotine dependence

== ENCOUNTER 2017-11-28 13:41 | Emergency (ER) | payer OTHER ==
[2017-11-28 13:41] VITALS: BMI 24.5
[2017-11-28 13:57] VITALS: RESP 18; TEMP 97.9
[2017-11-28 14:45] LABS: BASO # 0.03 K/mm3 (0.0-2.0); BASO % 0.2 % (0.0-3.0); EOS # 0.6 (0.0-0.7); EOS % 4.3 % (1.5-5.0); GRAN # 11.8 (1.4-6.5); GRAN % 83.7 % (50.0-68.0); HEMOGLOBIN 14.5 g/dL (14.0-18.0); LYMPH # 1.2 (1.2-3.4); LYMPH % 8.2 % (22.0-35.0); MEAN PLATELET VOLUME 12.3 fl (7.0-11.0); MONO # 0.5 (0.1-0.6); MONO % 3.6 % (1.0-6.0); RBC 4.68 10^6/uL (3.5-6.1); RED CELL DISTRIBUTION WIDTH 13.9 % (11.5-14.5); WHITE BLOOD COUNT 14.1 10^3/ul (4.5-11.0)
[2017-11-28 14:54] LABS: ALB/GLOB RATIO 1.2 (1.1-1.8); ALBUMIN 4.3 g/dL (3.0-4.8); ALT/SGPT 23 U/L (7-56); AST/SGOT 28 U/L (17-59); BLOOD UREA NITROGEN 34 mg/dL (7-21); CALCIUM 9.4 mg/dL (8.4-10.5); GFR NON-AFRICAN AMERICAN 54
[2017-11-28 15:06] LABS: TROPONIN I < 0.01 ng/mL
--- NOTE | 2017-11-28 15:11 | CT ---
Date of service: 11/28/2017 PROCEDURE: CT HEAD WITHOUT CONTRAST. HISTORY: r/o ICH COMPARISON: Comparison is made with 04/08/2017 TECHNIQUE: Axial computed tomography images were obtained through the head/brain without intravenous contrast. Radiation dose: Total exam DLP = 971.88 mGy-cm. This CT exam was performed using one or more of the following dose reduction techniques: Automated exposure control, adjustment of the mA and/or kV according to patient size, and/or use of iterative reconstruction technique. FINDINGS: HEMORRHAGE: No intracranial hemorrhage. BRAIN: [id number] atrophy and moderate chronic microvascular white matter ischemic disease are again noted. Small foci of encephalomalacia in the bilateral basal ganglia coronal radiata again noted suggestive of old lacunar infarcts. VENTRICLES: Unremarkable. No hydrocephalus. CALVARIUM: Unremarkable. PARANASAL SINUSES: Unremarkable as visualized. No significant inflammatory changes. MASTOID AIR CELLS: Unremarkable as visualized. No inflammatory changes. OTHER FINDINGS: None. IMPRESSION: No evidence of acute intracranial hemorrhage mass effect or midline shift. No significant interval change noted since the previous exam.
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
[2017-11-28 15:47] VITALS: PULSE 52; O2SAT 100
[2017-11-28 18:00] VITALS: BP 156/83
--- NOTE | 2017-11-28 21:59 | CARD ---
APPROVED REPORT Date of service: 11/28/2017 EKG Measurement Heart [id number] [id number] <Conclusion> Poor data quality, interpretation may be adversely affected Sinus bradycardia Left axis deviation Nonspecific T wave abnormality Prolonged QT Abnormal ECG
== END 2017-11-28 16:20 | disposition home or self-care (01) ==
LOC: ED 13:41
DX: I10 Essential (primary) hypertension (principal); R42 Dizziness and giddiness; Z87.891 Personal history of nicotine dependence
CPT/HCPCS: 70450; 80053; 82550; 83615; 83735; 84484; 85025; 93005; 96374; 96375; 99285; J2405; J2765

== ENCOUNTER 2018-07-22 15:41 | Inpatient (IN) | payer MEDICAID, OTHER ==
[2018-07-22] MEDS ORDERED: Sodium Chloride 0.9% 500 ML IV STA (16:16)
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
[2018-07-22 16:37] LABS: VENOUS BLOOD GAS PO2 40 mm/Hg (30-55); VENOUS BLOOD PH 7.38 (7.32-7.43)
[2018-07-22 16:42] LABS: BASO # 0.02 K/mm3 (0.0-2.0); BASO % 0.3 % (0.0-3.0); EOS # 0.5 (0.0-0.7); HEMOGLOBIN 11.9 g/dL (14.0-18.0); LYMPH # 1.3 (1.2-3.4); LYMPH % 20.8 % (22.0-35.0); MEAN CELL VOLUME 91.3 fl (80.0-105.0); MEAN CORPUSCULAR HEMOGLOBIN 28.6 pg (25.0-35.0); MEAN CORPUSCULAR HGB CONC 31.3 g/dl (31.0-37.0); MONO # 0.6 (0.1-0.6); MONO % 9.3 % (1.0-6.0); RBC 4.16 10^6/uL (3.5-6.1); RED CELL DISTRIBUTION WIDTH 13.9 % (11.5-14.5); WHITE BLOOD COUNT 6.2 10^3/uL (4.5-11.0)
[2018-07-22 16:50] LABS: ALB/GLOB RATIO 0.9 (1.1-1.8); ALBUMIN 3.8 g/dL (3.0-4.8); ALT/SGPT 14 U/L (7-56); AMYLASE 73 U/L (35-125); AST/SGOT 25 U/L (17-59); BLOOD UREA NITROGEN 29 mg/dL (7-21); CALCIUM 8.9 mg/dL (8.4-10.5); GFR NON-AFRICAN AMERICAN 46; LIPASE 109 U/L (23-300)
[2018-07-22 16:57] LABS: INR 1.17
[2018-07-22 17:00] LABS: PARTIAL THROMBOPLASTIN TIME 30.6 Seconds (26.9-38.3); TROPONIN I < 0.01 ng/mL
--- NOTE | 2018-07-22 17:59 | CT ---
Date of service: 07/22/2018 PROCEDURE: CT Abdomen and Pelvis without intravenous contrast HISTORY: low gfr, abdominal pain, r/o obstruction COMPARISON: None. TECHNIQUE: Contiguous images were obtained from the domes of the diaphragms to the upper thighs without the administration of intravenous contrast. Oral contrast was not administered. Radiation dose: Total exam DLP = 350.21 mGy-cm. This CT exam was performed using one or more of the following dose reduction techniques: Automated exposure control, adjustment of the mA and/or kV according to patient size, and/or use of iterative reconstruction technique. FINDINGS: LOWER THORAX: Cardiomegaly. Coronary arterial and valvular calcifications. No focal consolidation or pleural effusion. Bibasilar dependent subsegmental atelectasis. LIVER: Unremarkable. No gross lesion or ductal dilatation. GALLBLADDER AND BILE DUCTS: Unremarkable. PANCREAS: Unremarkable. No gross lesion or ductal dilatation. SPLEEN: Unremarkable. ADRENALS: Unremarkable. No mass. KIDNEYS AND URETERS: Unremarkable. No hydronephrosis. No solid mass. VASCULATURE: Aortic atherosclerotic calcifications. Rind of periaortic soft tissue beginning at the infrarenal level involving both common iliac and external iliac arteries. No aneurysm. BOWEL: Prior bowel surgery. No obstruction. No gross mural thickening. APPENDIX: Unremarkable. Normal appendix. PERITONEUM: Small bilateral fat containing inguinal hernias. No free fluid. No free air. LYMPH NODES: Unremarkable. No enlarged lymph nodes. BLADDER: Unremarkable. REPRODUCTIVE: Unremarkable. BONES: L5-S1 degenerative changes. No acute fracture. OTHER FINDINGS: None. IMPRESSION: No urolithiasis or evidence of recently passed genitourinary calculus. Rind of periaortic soft tissue beginning at the infrarenal level extending to the external iliac arteries most compatible with periaortitis.
--- NOTE | 2018-07-22 18:00 | RAD ---
Date of service: 07/22/2018 PROCEDURE: CHEST RADIOGRAPH, 1 VIEW HISTORY: abdominal pain COMPARISON: Chest radiograph dated 09/27/2016. FINDINGS: LUNGS: Clear. PLEURA: No pneumothorax or pleural fluid seen. CARDIOVASCULAR: Aortic atherosclerotic calcifications. Cardiomediastinal silhouette stably enlarged. OSSEOUS STRUCTURES: Unchanged. VISUALIZED UPPER ABDOMEN: Normal. OTHER FINDINGS: None. IMPRESSION: No active disease.
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
[2018-07-22 19:47] LABS: PH,URINE 6.5 (4.7-8.0); URINE BILIRUBIN NEGATIVE (NEGATIVE); URINE BLOOD NEGATIVE (NEGATIVE); URINE GLUCOSE (UA) NEGATIVE (NEGATIVE); URINE LEUKOCYTE ESTERASE NEGATIVE Leu/uL (NEGATIVE); URINE PROTEIN NEGATIVE mg/dL (<30 mg/dL); URINE UROBILINOGEN 0.2 E.U./dL (<1 E.U./dL)
[2018-07-22 19:48] LABS: URINE APPEARANCE CLEAR (CLEAR); URINE COLOR LIGHT YELLOW (YELLOW)
[2018-07-22 22:21] VITALS: BMI 24.8
[2018-07-22] MEDS ORDERED: Pneumococcal 23-Valent Vaccine IM ONE (22:21)
[2018-07-23 07:26] LABS: BASO # 0.01 K/mm3 (0.0-2.0); BASO % 0.3 % (0.0-3.0); EOS % 0.6 % (1.5-5.0); HEMOGLOBIN 12.5 g/dL (14.0-18.0); LYMPH # 0.5 (1.2-3.4); LYMPH % 15.5 % (22.0-35.0); MEAN CELL VOLUME 90.2 fl (80.0-105.0); MEAN CORPUSCULAR HEMOGLOBIN 28.3 pg (25.0-35.0); MEAN CORPUSCULAR HGB CONC 31.4 g/dl (31.0-37.0); MEAN PLATELET VOLUME 12.4 fl (7.0-11.0); MONO % 0.9 % (1.0-6.0); RBC 4.41 10^6/uL (3.5-6.1); RED CELL DISTRIBUTION WIDTH 13.7 % (11.5-14.5); WHITE BLOOD COUNT 3.5 10^3/uL (4.5-11.0)
[2018-07-23 07:45] LABS: TROPONIN I < 0.01 ng/mL
[2018-07-23 07:58] LABS: ALB/GLOB RATIO 0.8 (1.1-1.8); ALBUMIN 3.5 g/dL (3.0-4.8); ALT/SGPT 12 U/L (7-56); AST/SGOT 31 U/L (17-59); BLOOD UREA NITROGEN 28 mg/dL (7-21); CALCIUM 8.7 mg/dL (8.4-10.5); GFR NON-AFRICAN AMERICAN 60
--- NOTE | 2018-07-23 09:48 | CP.PCM.PN ---
<Sina Puente - Last Filed: 07/23/18 09:40> Subjective - Date & Time of Evaluation Date of Evaluation: 07/23/18 Time of Evaluation: 09:40 - Subjective Subjective: Sina Puente, PGY-1, Internal Medicine Progress Note for Dr. Chacon Patient seen and evaluated at bedside. Patient had no acute overnight events. Today, patient reports improved abdominal pain and burning, no nausea or vomiting. Patient also denies chest pain, shortness of breath, dysuria, or hematuria at this time. 12-point ROS was unremarkable except for what was mentioned above. Objective - Vital Signs/Intake and Output Vital Signs (last 24 hours): Temp Pulse Resp BP Pulse Ox 97.6 F 59 L 18 154/83 H 96 07/23/18 06:00 07/23/18 06:00 07/23/18 06:00 07/23/18 06:00 07/23/18 06:00 Intake and Output: 07/23/18 07/23/18 06:59 18:59 Intake Total 0 Output Total 200 Balance -200 - Medications Medications: Current Medications Amlodipine Besylate (Norvasc) 10 mg PO DAILY [facility] Hydralazine HCl (Apresoline) 10 mg IVP Q6H PRN PRN Reason: Systolic Blood Pressure Losartan Potassium (Cozaar) 50 mg PO BID [facility] Last Admin: 07/22/18 19:26 Dose: 50 mg Meclizine HCl (Antivert) 25 mg PO DAILY PRN PRN Reason: Dizziness Methylprednisolone (Solu-Medrol) 60 mg IVP DAILY [facility] Pantoprazole Sodium (Protonix Inj) 40 mg IVP BID [facility] - Labs Labs: 07/23/18 06:40 07/23/18 06:45 PT 13.0 SECONDS (9.4-12.5) H 07/22/18 16:30 INR 1.17 07/22/18 16:30 APTT 30.6 Seconds (26.9-38.3) 07/22/18 16:30 - Constitutional Appears: Well, Non-toxic, No Acute Distress - Head Exam Head Exam: ATRAUMATIC, NORMAL INSPECTION, NORMOCEPHALIC - Eye Exam Eye Exam: EOMI, PERRL - ENT Exam ENT Exam: Mucous Membranes Moist - Respiratory Exam Respiratory Exam: Clear to Auscultation Bilateral, NORMAL BREATHING PATTERN - Cardiovascular Exam Cardiovascular Exam: REGULAR RHYTHM, RRR, +S1, +S2. absent: Clicks, Gallop, Rubs - GI/Abdominal Exam GI & Abdominal Exam: Normal Bowel Sounds, Soft. absent: Tenderness - Extremities Exam Extremities exam: Positive for: full ROM, normal inspection. Negative for: pedal edema, tenderness - Neurological Exam Neurological exam: Alert, CN II-XII Intact, Oriented x3 - Skin Skin Exam: Dry, Intact, Normal Color Assessment and Plan - Assessment and Plan (Free Text) Assessment: 72 year old [place] speaking male with past medical history of hypertension and vertigo presents with burning abdominal pain for [address] was performed which showed aortitis at the infrarenal level extending to the external iliac arteries most compatible with periaortitis. Patient also has urinary symptoms and will be evaluated Plan: Periaortitis -Abdominal CT 07/22: rind of periaortic soft tissue beginning at the infrarenal level extending to the external iliac arteries most compatible with periaortitis -ESR: 100 -Will follow up CRP, hepatitis panel, C3, C4, EMILY, cryoglobulin, blood culture for further evaluation for etiology of periaortitis -Will follow up RPR and FTA-ABS as tertiary syphilis can be a cause of periaortitis -Given methylprednisone 125 mg in ED -Will start methylprednisone 60 mg daily today Urinary symptoms suspicious of UTI -UA: no leukocyte esterase or nitrate. doubt UTI -Follow up UCx, and blood culture -Abdominal CT shows no evidence of pyelonephritis Dyspepsia -Abdominal CT shows no etiology of cause of dyspepsia -Continue protonix 40 IV BID -EKG: normal sinus rhythm -Troponinx2 were negative -Consulted GI, Dr. Bella. Recommendations appreciated Hypertension -Blood pressure elevated with systolic over 200s upon admission. Blood pressure improved today to systolic BP in the 150s -Given clonidine in the ED -Continue home losartan 50 mg BID and amlodipine 10 mg daily with holding parameters for systolic blood pressure<110 -Continue hydralazine 10 mg Q6PRN Vertigo -Continue home meclizine as needed GI prophylaxis: protonix 40 BID DVT prophylaxis: SCD Patient plan discussed with Dr. Chacon. <Sue Chacon - Last Filed: 07/23/18 14:17> Objective - Vital Signs/Intake and Output Vital Signs (last 24 hours): Temp Pulse Resp BP Pulse Ox 97.7 F 53 L 18 148/72 96 07/23/18 12:00 07/23/18 12:00 07/23/18 12:00 07/23/18 12:00 07/23/18 06:00 Intake and Output: 07/23/18 07/23/18 06:59 18:59 Intake Total 0 Output Total 200 Balance -200 - Medications Medications: Current Medications Amlodipine Besylate (Norvasc) 10 mg PO DAILY [facility] Last Admin: 07/23/18 10:14 Dose: 10 mg Hydralazine HCl (Apresoline) 10 mg IVP Q6H PRN PRN Reason: Systolic Blood Pressure Losartan Potassium (Cozaar) 50 mg PO BID [facility] Last Admin: 07/23/18 10:13 Dose: 50 mg Meclizine HCl (Antivert) 25 mg PO DAILY PRN PRN Reason: Dizziness Methylprednisolone (Solu-Medrol) 60 mg IVP DAILY [facility] Last Admin: 07/23/18 10:13 Dose: 60 mg Pantoprazole Sodium (Protonix Inj) 40 mg IVP BID [facility] Last Admin: 07/23/18 10:13 Dose: 40 mg - Labs Labs: 07/23/18 06:40 07/23/18 06:45 PT 13.0 SECONDS (9.4-12.5) H 07/22/18 16:30 INR 1.17 07/22/18 16:30 APTT 30.6 Seconds (26.9-38.3) 07/22/18 16:30 Attending/Attestation - Attestation I have personally seen and examined this patient.: Yes I have fully participated in the care of the patient.: Yes I have reviewed all pertinent clinical information, including history, physical exam and plan: Yes Notes (Text): Patient seen and examined by me with resident at approximately at 8:40AM on 07/23/18. Case including HPI, physical exam, and assessment and plan discussed with resident. Agree with above with following additions/corrections. Patient is a 72-year-old [place]-speaking male with past medical history significant for hypertension and vertigo presented to the emergency room with "burning" abdominal pain for 2 weeks. 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 Patient states he is feeling much better today. "Burning" abdominal pain seems to have resolved. Patient denies any buring or pain with urination. No nausea or vomiting. Patient tolerating diet. No chest pain or shortness of breath. No headaches or dizziness. No fevers or chills. Patient denies diarrhea or constipation. Physical exam: General: Awake and alert lying in bed in no acute distress HEENT: Normocephalic, atraumatic. Extraocular muscles intact. Pupils equal and reactive, no scleral icterus. Oropharynx pink and moist. No pharyngeal erythema or exudate appreciated. Neck supple. Cardiovascular: Regular rhythm. Normal S1 and S2. No murmurs, rubs, or gallops appreciated Pulmonary: Normal respiratory effort. No rhonchi, rales, or wheezing appreciated Gastrointestinal: Soft. Nondistended. Nontender. Positive bowel sounds all 4 quadrants. No guarding. Musculoskeletal: Moves all extremities. No calf tenderness. No edema appreciated Central nervous system: AAO x3. No focal deficits appreciated. Dermatologic: Skin warm and dry. Assessment and plan: Patient is a 72-year-old [place]-speaking male with past medical history significant for hypertension and vertigo presented to the emergency room with "burning" abdominal pain for [address] abdomen and pelvis per radiology showed no urolithiasis or evidence of recently passed genitourinary calculus; rind of periaortic soft tissue beginning of the infrarenal level extending to the external iliac arteries most compatible with periaortitis. Continue methylprednisolone. CRP elevated at 10.5. ESR elevated 100. Complement C3 78, complement C4 less than 8. Pending RPR and FTA-ABS, EMILY, cryoglobulin, and blood cultures 2. Abdominal pain. Resolved for now. Continue Protonix. GI recommendations appreciated. 3. Dysuria. Resolved. Urinalysis negative for infection. 4. Hypertension. Continue Norvasc and Cozaar. 5. Vertigo. Continue Antivert as needed. Case was discussed in detail with the patient regarding her diagnosis and treatment plan. All questions answered.
--- NOTE | 2018-07-23 10:12 | CARD ---
APPROVED REPORT Date of service: 07/22/2018 EKG Measurement Heart [id number] <Conclusion> Sinus bradycardia Left axis deviation Prolonged QT Abnormal ECG
[2018-07-23] MEDS: MethylPREDNISolone 40 mg Vial IVP SCH (10:13)
[2018-07-23 13:07] LABS: COMPLEMENT C4 < 8.0 mg/dL (14.0-44.0)
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
[2018-07-24 01:34] VITALS: O2SAT 98
[2018-07-24 07:21] LABS: HEMOGLOBIN 11.6 g/dL (14.0-18.0); LYMPH % 8.3 % (22.0-35.0); MEAN CELL VOLUME 90.5 fl (80.0-105.0); MEAN CORPUSCULAR HEMOGLOBIN 28.2 pg (25.0-35.0); MEAN CORPUSCULAR HGB CONC 31.1 g/dl (31.0-37.0); MEAN PLATELET VOLUME 12.8 fl (7.0-11.0); MONO # 0.6 (0.1-0.6); MONO % 4.9 % (1.0-6.0); RBC 4.12 10^6/uL (3.5-6.1); RED CELL DISTRIBUTION WIDTH 14.1 % (11.5-14.5)
[2018-07-24 07:30] LABS: ALB/GLOB RATIO 0.8 (1.1-1.8); ALBUMIN 3.3 g/dL (3.0-4.8); ALT/SGPT 15 U/L (7-56); AST/SGOT 30 U/L (17-59); BLOOD UREA NITROGEN 33 mg/dL (7-21); CALCIUM 9.1 mg/dL (8.4-10.5); GFR NON-AFRICAN AMERICAN 54
[2018-07-24 08:02] LABS: WHITE BLOOD COUNT 12.6 10^3/uL (4.5-11.0)
[2018-07-24 08:25] LABS: HEPATITIS B SURFACE AG Negative (NEGATIVE)
[2018-07-24 08:32] LABS: HEPATITIS A IGM NEGATIVE (NEGATIVE); HEPATITIS B CORE AB NEGATIVE (NEGATIVE)
[2018-07-24 08:42] LABS: HEPATITIS C ANTIBODY NEGATIVE (NEGATIVE)
[2018-07-24] MEDS: MethylPREDNISolone 40 mg Vial IVP SCH (09:48)
[2018-07-24] MEDS: POLYETHYLENE GLYCOL 3350 17 GM/Dose PACKET PO SCH (11:28)
--- NOTE | 2018-07-24 13:21 | CP.PCM.DIS ---
<GenerenettaSina - Last Filed: 07/25/18 15:04> Provider - Provider Date of Admission: 07/22/18 18:24 Attending physician: Wilda Lara MD Primary care physician: Quinton Ramos MD Consults: 07/22/18 19:42 Gastroenterology Consult Routine Comment: Consulting Provider: Javier Bella Consulting Physician: Javier Bella Reason for Consult: burning abdominal pain not relieved with omeprazole Time Spent in preparation of Discharge (in minutes): 60 Hospital Course - Lab Results Lab Results: Micro Results 07/22/18 20:15 Urine Random Urine Culture - Final No Growth (<1,000 CFU/ML) 07/22/18 17:00 Blood Blood Culture - Preliminary NO GROWTH AFTER 24 HOURS 07/22/18 16:30 Blood Blood Culture - Preliminary NO GROWTH AFTER 24 HOURS Most Recent Lab Values WBC 12.6 10^3/uL (4.5-11.0) H D 07/24/18 06:30 RBC 4.12 10^6/uL (3.5-6.1) 07/24/18 06:30 Hgb 11.6 g/dL (14.0-18.0) L 07/24/18 06:30 Hct 37.3 % (42.0-52.0) L 07/24/18 06:30 MCV 90.5 fl (80.0-105.0) 07/24/18 06:30 MCH 28.2 pg (25.0-35.0) 07/24/18 06:30 MCHC 31.1 g/dl (31.0-37.0) 07/24/18 06:30 RDW 14.1 % (11.5-14.5) 07/24/18 06:30 Plt Count 216 10^3/uL (120.0-450.0) 07/24/18 06:30 MPV 12.8 fl (7.0-11.0) H 07/24/18 06:30 Neut % (Auto) 86.8 % (50.0-68.0) H 07/24/18 06:30 Lymph % (Auto) 8.3 % (22.0-35.0) L 07/24/18 06:30 [place] % (Auto) 4.9 % (1.0-6.0) 07/24/18 06:30 Eos % (Auto) 0.0 % (1.5-5.0) L 07/24/18 06:30 Baso % (Auto) 0.0 % (0.0-3.0) 07/24/18 06:30 Lymph # (Auto) 1.0 (1.2-3.4) L 07/24/18 06:30 [place] # (Auto) 0.6 (0.1-0.6) 07/24/18 06:30 Eos # (Auto) 0.0 (0.0-0.7) 07/24/18 06:30 Baso # (Auto) 0.00 K/mm3 (0.0-2.0) 07/24/18 06:30 Absolute Neuts (auto) 10.89 (1.4-6.5) H 07/24/18 06:30 ESR 100 mm/hr (0.00-15.0) H 07/23/18 06:40 PT 13.0 SECONDS (9.4-12.5) H 07/22/18 16:30 INR 1.17 07/22/18 16:30 APTT 30.6 Seconds (26.9-38.3) 07/22/18 16:30 pO2 40 mm/Hg (30-55) 07/22/18 16:20 VBG pH 7.38 (7.32-7.43) 07/22/18 16:20 VBG pCO2 43.0 (40-60) 07/22/18 16:20 VBG HCO3 25.4 mmol/l (21-28) 07/22/18 16:20 VBG Total CO2 26.7 mmol.L (22-28) 07/22/18 16:20 VBG O2 Sat (Calc) 77.7 % (40-65) H 07/22/18 16:20 VBG Base Excess 0.0 mmol/L (0.0-2.0) 07/22/18 16:20 VBG Potassium 4.2 mmol/L (3.6-5.2) 07/22/18 16:20 Sodium 140.0 mmol/L (132-148) 07/22/18 16:20 Chloride 107.0 mmol/L (98-107) 07/22/18 16:20 Glucose 84 mg/dl (75-110) 07/22/18 16:20 Lactate 1.0 mmol/L (0.7-2.1) 07/22/18 16:20 FiO2 21.0 % 07/22/18 16:20 Sodium 140 mmol/L (132-148) 07/24/18 06:30 Potassium 4.3 mmol/L (3.6-5.0) 07/24/18 06:30 Chloride 105 mmol/L (98-107) 07/24/18 06:30 Carbon Dioxide 26 mmol/L (21-33) 07/24/18 06:30 Anion Gap 12 (10-20) 07/24/18 06:30 BUN 33 mg/dL (7-21) H 07/24/18 06:30 Creatinine 1.3 mg/dl (0.8-1.5) 07/24/18 06:30 Est GFR ( Amer) > 60 07/24/18 06:30 Est GFR (Non-Af Amer) 54 07/24/18 06:30 POC Glucose (mg/dL) 94 mg/dL (65-110) 07/22/18 16:28 Random Glucose 98 mg/dL (70-110) 07/24/18 06:30 Calcium 9.1 mg/dL (8.4-10.5) 07/24/18 06:30 Phosphorus 3.5 mg/dL (2.5-4.5) 07/24/18 06:30 Magnesium 2.2 mg/dL (1.7-2.2) 07/24/18 06:30 Total Bilirubin 0.3 mg/dL (0.2-1.3) 07/24/18 06:30 AST 30 U/L (17-59) 07/24/18 06:30 ALT 15 U/L (7-56) 07/24/18 06:30 Alkaline Phosphatase 74 U/L (38-126) 07/24/18 06:30 Lactate Dehydrogenase 438 U/L (333-699) 07/22/18 16:30 Total Creatine Kinase 52 U/L (35-230) 07/22/18 16:30 Troponin I < 0.01 ng/mL 07/23/18 06:45 C-Reactive Protein 10.50 mg/L (0.0-9.9) H 07/23/18 07:00 Total Protein 7.2 g/dL (5.8-8.3) 07/24/18 06:30 Albumin 3.3 g/dL (3.0-4.8) 07/24/18 06:30 Globulin 3.9 gm/dL 07/24/18 06:30 Albumin/Globulin Ratio 0.8 (1.1-1.8) L 07/24/18 06:30 Amylase 73 U/L (35-125) 07/22/18 16:30 Lipase 109 U/L (23-300) 07/22/18 16:30 Procalcitonin < 0.05 NG/ML (0.19-0.49) L 07/23/18 06:45 Venous Blood Potassium 4.2 mmol/L (3.6-5.2) 07/22/18 16:20 Urine Color Light yellow (YELLOW) 07/22/18 19:30 Urine Appearance Clear (CLEAR) 07/22/18 19:30 Urine pH 6.5 (4.7-8.0) 07/22/18 19:30 Ur Specific [place] 1.010 (1.005-1.035) 07/22/18 19:30 Urine Protein Negative mg/dL (<30 mg/dL) 07/22/18 19:30 Urine Glucose (UA) Negative mg/dL (NEGATIVE) 07/22/18 19:30 Urine Ketones Negative mg/dL (NEGATIVE) 07/22/18 19:30 Urine Blood Negative (NEGATIVE) 07/22/18 19:30 Urine Nitrate Negative (NEGATIVE) 07/22/18 19:30 Urine Bilirubin Negative (NEGATIVE) 07/22/18 19:30 Urine Urobilinogen 0.2 E.U./dL (<1 E.U./dL) 07/22/18 19:30 Ur Leukocyte Esterase Negative Torin/uL (NEGATIVE) 07/22/18 19:30 Complement C3 78.0 mg/dL (88.0-165.0) L 07/23/18 06:00 Complement C4 < 8.0 mg/dL (14.0-44.0) L 07/23/18 06:00 RPR Nonreactive (NONREACTIVE) 07/23/18 06:45 Hepatitis A IgM Ab Negative (NEGATIVE) 07/23/18 06:45 Hep Bs Antigen Negative (NEGATIVE) 07/23/18 06:45 Hep Bs Antibody Positive (NEGATIVE) 07/23/18 06:45 Hep B Core IgM Ab Negative (NEGATIVE) 07/23/18 06:45 Hepatitis C Antibody Negative (NEGATIVE) 07/23/18 06:45 - Hospital Course Hospital Course: Sina Puente, PGY-1, Internal Medicine Discharge Summary for Dr. Lara 72 year old male with past medical history of hypertension and vertigo presented with burning abdominal pain for 2 weeks. Patient reported he was resting at home when he started to feel this pain. Pain was burning from the top of his abdomen down to the bottom of his abdomen down the center of his abdomen, in a bandlike fashion. Abdominal pain radiated to his back and was exacerbated by laying on his back. Pain had no remitting factors. Associated factors included nausea, but patient denied vomiting, constipation, or diarrhea. Patient had 1 normal bowel movement daily. Patient went to see Dr. Ramos 2 weeks prior to admission at [facility] and was given omeprazole for his symptoms, which did not help his abdominal pain. He was given a prescription for endoscopy at that time. Patient also reported dysuria and nocturia which started 2 weeks ago but denied hematuria. Upon admission, patient had abdominal and pelvis CT which showed rind of periaortic soft tissue beginning at the infrarenal level extending to the external iliac arteries most compatible with periaortitis. ESR and CRP were both elevated. Hepatitis panel was negative. C3 and C4 were low. Blood culture was negative. RPR and FTA-ABS was negative. We are still awaiting cryoglobulin, EMILY, IgG4. Patient was given methylprednisone 125 in the emergency department and subsequently started on methylprednisone 1 mg/kg daily. EKG and Troponinx2 were unremarkable, ruling out ND as cause of burning epigastric pain. Patient's abdominal pain reduced, increased, and once again reduced today. Patient was started on protonix 40 mg IV BID which has improved his pain. For patient's urinary symptoms, urinanalysis and urine culture showed no evidence of UTI. As a result, flomax was started for relief of urinary symptoms. Patient had elevated blood pressure with SBP over 200s on admission. Patient was given clonidine in the emergency department and started on losartan 50 mg BID and amlodipine 10 mg daily with hydralazine 10 mg Q6 as needed, which helped control his blood pressure as he was in the 130s to 140s from the to the 24 of July. Patient was found to be stable and ready for discharge. Patient was told to follow up with PCP and have PCP refer him to bar attendant for further evaluation of aortitis. Patient was told to take prednisone 60 mg daily for 14 days and prednisone 40 mg for the next 14 days and was given protonix as GI prophylaxis due to high dose of steroids. Patient was told to continue losartan for hypertension. Patient was told to take miralax as needed for constipation. Patient was told to take flomax for urinary symptoms daily. Patient was told to return to the emergency department if he had any new or concerning symptoms. We will follow up with the rest of the results with the patient, including FTA- ABS, EMILY, cryglobulin, IgG4. This is a brief summary of the events that transpired at the hospital. For more information, please refer to the hospital documentation. Discharge diagnoses Periaortitis Dysuria and Nocturia Dyspepsia Hypertension Vertigo - Date & Time of H&P Date of H&P: 07/22/18 Time of H&P: 18:57 Discharge Exam - Head Exam Head Exam: ATRAUMATIC, NORMAL INSPECTION, NORMOCEPHALIC - Eye Exam Eye Exam: EOMI, PERRL - ENT Exam ENT Exam: Mucous Membranes Moist - Respiratory Exam Respiratory Exam: Clear to PA & Lateral, NORMAL BREATHING PATTERN. absent: Rales, Rhonchi, Wheezes - Cardiovascular Exam Cardiovascular Exam: REGULAR RHYTHM, RRR, +S1, +S2. absent: Clicks, Gallop, Rubs - GI/Abdominal Exam GI & Abdominal Exam: Normal Bowel Sounds, Soft, Tenderness (diffuse). absent: Distended, Firm, Guarding - Extremities Exam Extremities exam: full ROM, normal capillary refill, normal inspection - Neurological Exam Neurological exam: Alert, CN II-XII Intact, Normal Gait, Oriented x3 - Skin Skin Exam: Dry, Intact, Normal Color Discharge Plan - Discharge Medications Prescriptions: Losartan [Cozaar] 50 mg PO BID 30 Days #60 tab Meclizine [Meclizine*] 25 mg PO DAILY PRN 14 Days #14 tab PRN Reason: Dizziness Pantoprazole [Protonix] 40 mg PO DAILY 30 Days #30 ect Polyethylene Glycol 3350 [Miralax] 17 gm PO DAILY 14 Days #14 packet predniSONE [Prednisone] 60 mg PO DAILY #42 tab predniSONE [Prednisone] 40 mg PO DAILY 14 Days #28 tab Tamsulosin [Flomax] 0.4 mg PO DAILY 30 Days #30 cap - Follow Up Plan Condition: FAIR Disposition: HOME/ ROUTINE Instructions: High Blood Pressure (DC) Additional Instructions: 1. Please follow up with your primary care doctor, Dr. Ramos within 3-5 days. Please obtain a referral from Dr. Ramos for Rheumatology for further follow up of aortitis. 2. Please take all medications as prescribed. -Take prednisone 60 mg daily for 2 weeks from to 08/08 and 40 mg po daily for 2 more weeks from 08/09 to 08/22. -Take protonix 40 mg daily for 2 weeks -Take miralax 17 gm daily as needed for constipation -Take flomax 0.4 mg daily for urinary symptoms -Take home losartan and antivert. 3. Please return to the emergency room if you have any new or concerning symptoms. Referrals: Quinton Ramos MD [Primary Care Provider] - <Wilda Lara - Last Filed: 07/25/18 17:12> Provider - Provider Date of Admission: 07/22/18 18:24 Attending physician: Wilda Lara MD Primary care physician: Quinton Ramos MD Consults: 07/22/18 19:42 Gastroenterology Consult Routine Comment: Consulting Provider: Javier Bella Consulting Physician: Javier Bella Reason for Consult: burning abdominal pain not relieved with omeprazole Hospital Course - Lab Results Lab Results: Micro Results 07/22/18 17:00 Blood Blood Culture - Preliminary NO GROWTH AFTER 48 HOURS 07/22/18 16:30 Blood Blood Culture - Preliminary NO GROWTH AFTER 48 HOURS 07/22/18 20:15 Urine Random Urine Culture - Final No Growth (<1,000 CFU/ML) Most Recent Lab Values WBC 11.9 10^3/uL (4.5-11.0) H 07/25/18 06:10 RBC 4.15 10^6/uL (3.5-6.1) 07/25/18 06:10 Hgb 11.7 g/dL (14.0-18.0) L 07/25/18 06:10 Hct 37.6 % (42.0-52.0) L 07/25/18 06:10 MCV 90.6 fl (80.0-105.0) 07/25/18 06:10 MCH 28.2 pg (25.0-35.0) 07/25/18 06:10 MCHC 31.1 g/dl (31.0-37.0) 07/25/18 06:10 RDW 14.1 % (11.5-14.5) 07/25/18 06:10 Plt Count 196 10^3/uL (120.0-450.0) 07/25/18 06:10 MPV 12.8 fl (7.0-11.0) H 07/25/18 06:10 Neut % (Auto) 82.8 % (50.0-68.0) H 07/25/18 06:10 Lymph % (Auto) 12.1 % (22.0-35.0) L 07/25/18 06:10 [place]ann[place] % (Auto) 5.1 % (1.0-6.0) 07/25/18 06:10 Eos % (Auto) 0.0 % (1.5-5.0) L 07/25/18 06:10 Baso % (Auto) 0.0 % (0.0-3.0) 07/25/18 06:10 Lymph # (Auto) 1.4 (1.2-3.4) 07/25/18 06:10 [place]ann[place] # (Auto) 0.6 (0.1-0.6) 07/25/18 06:10 Eos # (Auto) 0.0 (0.0-0.7) 07/25/18 06:10 Baso # (Auto) 0.00 K/mm3 (0.0-2.0) 07/25/18 06:10 Absolute Neuts (auto) 9.81 (1.4-6.5) H 07/25/18 06:10 ESR 100 mm/hr (0.00-15.0) H 07/23/18 06:40 PT 13.0 SECONDS (9.4-12.5) H 07/22/18 16:30 INR 1.17 07/22/18 16:30 APTT 30.6 Seconds (26.9-38.3) 07/22/18 16:30 pO2 40 mm/Hg (30-55) 07/22/18 16:20 VBG pH 7.38 (7.32-7.43) 07/22/18 16:20 VBG pCO2 43.0 (40-60) 07/22/18 16:20 VBG HCO3 25.4 mmol/l (21-28) 07/22/18 16:20 VBG Total CO2 26.7 mmol.L (22-28) 07/22/18 16:20 VBG O2 Sat (Calc) 77.7 % (40-65) H 07/22/18 16:20 VBG Base Excess 0.0 mmol/L (0.0-2.0) 07/22/18 16:20 VBG Potassium 4.2 mmol/L (3.6-5.2) 07/22/18 16:20 Sodium 140.0 mmol/L (132-148) 07/22/18 16:20 Chloride 107.0 mmol/L (98-107) 07/22/18 16:20 Glucose 84 mg/dl (75-110) 07/22/18 16:20 Lactate 1.0 mmol/L (0.7-2.1) 07/22/18 16:20 FiO2 21.0 % 07/22/18 16:20 Sodium 140 mmol/L (132-148) 07/25/18 06:10 Potassium 4.4 mmol/L (3.6-5.0) 07/25/18 06:10 Chloride 105 mmol/L (98-107) 07/25/18 06:10 Carbon Dioxide 29 mmol/L (21-33) 07/25/18 06:10 Anion Gap 10 (10-20) 07/25/18 06:10 BUN 33 mg/dL (7-21) H 07/25/18 06:10 Creatinine 1.4 mg/dl (0.8-1.5) 07/25/18 06:10 Est GFR ( Amer) > 60 07/25/18 06:10 Est GFR (Non-Af Amer) 50 07/25/18 06:10 POC Glucose (mg/dL) 94 mg/dL (65-110) 07/22/18 16:28 Random Glucose 85 mg/dL (70-110) 07/25/18 06:10 Calcium 9.1 mg/dL (8.4-10.5) 07/25/18 06:10 Phosphorus 3.9 mg/dL (2.5-4.5) 07/25/18 06:10 Magnesium 2.1 mg/dL (1.7-2.2) 07/25/18 06:10 Total Bilirubin 0.2 mg/dL (0.2-1.3) 07/25/18 06:10 AST 34 U/L (17-59) 07/25/18 06:10 ALT 15 U/L (7-56) 07/25/18 06:10 Alkaline Phosphatase 84 U/L (38-126) 07/25/18 06:10 Lactate Dehydrogenase 438 U/L (333-699) 07/22/18 16:30 Total Creatine Kinase 52 U/L (35-230) 07/22/18 16:30 Troponin I < 0.01 ng/mL 07/23/18 06:45 C-Reactive Protein 10.50 mg/L (0.0-9.9) H 07/23/18 07:00 Total Protein 7.4 g/dL (5.8-8.3) 07/25/18 06:10 Albumin 3.5 g/dL (3.0-4.8) 07/25/18 06:10 Globulin 3.9 gm/dL 07/25/18 06:10 Albumin/Globulin Ratio 0.9 (1.1-1.8) L 07/25/18 06:10 Amylase 73 U/L (35-125) 07/22/18 16:30 Lipase 109 U/L (23-300) 07/22/18 16:30 Procalcitonin < 0.05 NG/ML (0.19-0.49) L 07/23/18 06:45 Venous Blood Potassium 4.2 mmol/L (3.6-5.2) 07/22/18 16:20 Urine Color Light yellow (YELLOW) 07/22/18 19:30 Urine Appearance Clear (CLEAR) 07/22/18 19:30 Urine pH 6.5 (4.7-8.0) 07/22/18 19:30 Ur Specific [place] 1.010 (1.005-1.035) 07/22/18 19:30 Urine Protein Negative mg/dL (<30 mg/dL) 07/22/18 19:30 Urine Glucose (UA) Negative mg/dL (NEGATIVE) 07/22/18 19:30 Urine Ketones Negative mg/dL (NEGATIVE) 07/22/18 19:30 Urine Blood Negative (NEGATIVE) 07/22/18 19:30 Urine Nitrate Negative (NEGATIVE) 07/22/18 19:30 Urine Bilirubin Negative (NEGATIVE) 07/22/18 19:30 Urine Urobilinogen 0.2 E.U./dL (<1 E.U./dL) 07/22/18 19:30 Ur Leukocyte Esterase Negative Torin/uL (NEGATIVE) 07/22/18 19:30 EMILY Screen Negative (Negative) 07/23/18 06:45 Proteinase 3 (PR3) <1.0 AI (<1.0) 07/24/18 16:00 Myeloperoxidase Ab <1.0 AI (<1.0) 07/24/18 16:00 Complement C3 78.0 mg/dL (88.0-165.0) L 07/23/18 06:00 Complement C4 < 8.0 mg/dL (14.0-44.0) L 07/23/18 06:00 RPR Nonreactive (NONREACTIVE) 07/23/18 06:45 T.pallidum Ab (FTA-ABS) Nonreactive (Nonreactive) 07/23/18 07:15 Hepatitis A IgM Ab Nonreactive (Nonreactive) 07/23/18 06:45 Hepatitis A Ab Total Reactive (Nonreactive) H 07/23/18 06:45 Hep Bs Antigen Negative (NEGATIVE) 07/23/18 06:45 Hep Bs Antibody Positive (NEGATIVE) 07/23/18 06:45 Hep B Core IgM Ab Negative (NEGATIVE) 07/23/18 06:45 Hepatitis C Antibody Negative (NEGATIVE) 07/23/18 06:45 Attending/Attestation - Attestation I have personally seen and examined this patient.: Yes I have fully participated in the care of the patient.: Yes I have reviewed all pertinent clinical information, including history, physical exam and plan: Yes Notes (Text): 07/25/18 17:11 Attending note: Patient seen and examined with resident. Denies any fever and chills. denies any chest pain, shortness of breath. Denies any abdominal pain, nausea and vomiting. tolerating diet. Patient is a 72-year-old Yi-speaking male with past medical history significant for hypertension and vertigo presented to the emergency room with "burning" abdominal pain for 2 weeks. 1. Periaortitis. Isolated periaortitis: CT reviwed with radiologist/ vascular surgeon Dr. Ordonez in detail. No aneurysm noted. Advised to continue steroids and monitor. CT abdomen and pelvis showed no urolithiasis or evidence of recently passed genitourinary calculus; rind of periaortic soft tissue beginning of the infrarenal level extending to the external iliac arteries most compatible with periaortitis. Continue methylprednisolone. CRP elevated at 10.5. ESR elevated 100. Complement C3 78, complement C4 less than 8. RPR and FTA-ABS negative. EMILY, cryoglobulin pending. hep B surface AB positive. Message left with PMD 's office. 2. Abdominal pain. Resolved for now. Continue Protonix. GI recommendations appreciated. 3. Hypertension. Continue Norvasc and Cozaar. 4. Vertigo. Continue Antivert as needed. Ambulating without difficulty. discharge home today. diagnosis discussed with family in detail. Follow up with PMD DR. ramos. Needs outpatient Rheumatology Follow up.
--- NOTE | 2018-07-24 21:42 | CP.PCM.PN ---
<Sina Puente - Last Filed: 07/24/18 21:33> Subjective - Date & Time of Evaluation Date of Evaluation: 07/24/18 Time of Evaluation: 21:34 - Subjective Subjective: Sina Puente, PGY-1, Internal Medicine Progress Note for Dr. Lara Patient seen and evaluated at bedside. Patient had no acute overnight events. Today, patient once again complains of abdominal pain and dizziness. Patient had not been given meclizine yet. Patient has not had a bowel movement. 12-point ROS was unremarkable except for what was mentioned above. Objective - Vital Signs/Intake and Output Vital Signs (last 24 hours): Temp Pulse Resp BP Pulse Ox 97.6 F 67 19 138/75 98 07/24/18 12:00 07/24/18 18:00 07/24/18 12:00 07/24/18 17:26 07/24/18 05:59 Intake and Output: 07/24/18 07/25/18 18:59 06:59 Intake Total 1320 Output Total 6 Balance 1314 - Medications Medications: Current Medications Amlodipine Besylate (Norvasc) 10 mg PO DAILY [facility] Last Admin: 07/24/18 09:49 Dose: 10 mg Hydralazine HCl (Apresoline) 10 mg IVP Q6H PRN PRN Reason: Systolic Blood Pressure Losartan Potassium (Cozaar) 50 mg PO BID [facility] Last Admin: 07/24/18 17:26 Dose: 50 mg Meclizine HCl (Antivert) 25 mg PO DAILY PRN PRN Reason: Dizziness Last Admin: 07/24/18 09:47 Dose: 25 mg Methylprednisolone (Solu-Medrol) 60 mg IVP DAILY [facility] Last Admin: 07/24/18 09:48 Dose: 60 mg Pantoprazole Sodium (Protonix Ec Tab) 40 mg PO 0600 [facility] Polyethylene Glycol (Miralax) 17 gm PO DAILY [facility] Last Admin: 07/24/18 11:28 Dose: 17 gm Tamsulosin HCl (Flomax) 0.4 mg PO DAILY [facility] Last Admin: 07/24/18 11:27 Dose: 0.4 mg - Labs Labs: 07/24/18 06:30 07/24/18 06:30 PT 13.0 SECONDS (9.4-12.5) H 07/22/18 16:30 INR 1.17 07/22/18 16:30 APTT 30.6 Seconds (26.9-38.3) 07/22/18 16:30 - Constitutional Appears: Well, Non-toxic, No Acute Distress - Head Exam Head Exam: ATRAUMATIC, NORMAL INSPECTION, NORMOCEPHALIC - Eye Exam Eye Exam: EOMI, PERRL - ENT Exam ENT Exam: Mucous Membranes Moist - Respiratory Exam Respiratory Exam: Clear to Auscultation Bilateral, NORMAL BREATHING PATTERN - Cardiovascular Exam Cardiovascular Exam: REGULAR RHYTHM, RRR, +S1, +S2. absent: Clicks, Gallop, Rubs - GI/Abdominal Exam GI & Abdominal Exam: Normal Bowel Sounds, Soft, Diffuse Tenderness - Extremities Exam Extremities exam: Positive for: full ROM, normal inspection. Negative for: pedal edema, tenderness - Neurological Exam Neurological exam: Alert, CN II-XII Intact, Oriented x3 - Skin Skin Exam: Dry, Intact, Normal Color Assessment and Plan - Assessment and Plan (Free Text) Assessment: 72 year old Polish speaking male with past medical history of hypertension and vertigo presents with burning abdominal pain for [address] was performed which showed aortitis at the infrarenal level extending to the external iliac arteries most compatible with periaortitis. Patient also has urinary symptoms and UA was negative. Plan: Periaortitis -Abdominal CT 07/22: rind of periaortic soft tissue beginning at the infrarenal level extending to the external iliac arteries most compatible with periaortitis -ESR: 100, CRP: 10.50 -Hepatitis panel unremarkable -C3 and C4 low. Will follow up EMILY -Blood culture negative -RPR and FTA-ABS are both negative -Ordered IgG4 for further evaluation of periaortitis etiology -Will follow up cryoglobulin for further evaluation for etiology of periaortitis -Given methylprednisone 125 mg in ED -Will continue methylprednisone 60 mg daily Urinary symptoms suspicious of UTI -UA: no leukocyte esterase or nitrate. doubt UTI -BCx and UCx negative. -Abdominal CT shows no evidence of pyelonephritis -Started flomax 0.4 mg daily for urinary symptoms Dyspepsia -Abdominal CT shows no etiology of cause of dyspepsia -EKG: normal sinus rhythm -Troponinx2 were negative -Continue protonix 40 PO ACB -Consulted GI, Dr. Bella. Recommendations appreciated Hypertension -Blood pressure elevated with systolic over 200s upon admission. Blood pressure improved today to systolic BP in the 130s-140s -Given clonidine in the ED -Continue home losartan 50 mg BID and amlodipine 10 mg daily with holding parameters for systolic blood pressure<110 -Continue hydralazine 10 mg Q6PRN Vertigo -Continue home meclizine as needed Constipation -Started miralax 17 gm daily -Will monitor for bowel movements GI prophylaxis: protonix DVT prophylaxis: SCD Patient plan discussed with Dr. Lara. <Wilda Lara - Last Filed: 07/25/18 17:10> Objective - Vital Signs/Intake and Output Vital Signs (last 24 hours): Temp Pulse Resp BP Pulse Ox 97.6 F 59 L 20 172/80 H 98 07/25/18 12:00 07/25/18 12:00 07/25/18 12:00 07/25/18 12:00 07/24/18 23:27 Intake and Output: 07/25/18 07/25/18 06:59 18:59 Intake Total 1860 Output Total 6 Balance 1854 - Labs Labs: 07/25/18 06:10 07/25/18 06:10 PT 13.0 SECONDS (9.4-12.5) H 07/22/18 16:30 INR 1.17 07/22/18 16:30 APTT 30.6 Seconds (26.9-38.3) 07/22/18 16:30 Attending/Attestation - Attestation I have personally seen and examined this patient.: Yes I have fully participated in the care of the patient.: Yes I have reviewed all pertinent clinical information, including history, physical exam and plan: Yes Notes (Text): 07/25/18 17:07 Attending note: Patient seen and examined with resident. Denies any fever and chills. denies any chest pain, shortness of breath. Denies any abdominal pain, nausea and vomiting. tolerating diet. ambulating fine. Patient is a 72-year-old Polish-speaking male with past medical history significant for hypertension and vertigo presented to the emergency room with "burning" abdominal pain for 2 weeks. 1. Periaortitis. Isolated periaortitis: CT reviwed with radiologist/ vascular surgeon Dr. Ordonez in detail. No aneurysm noted. Advised to continue steroids and monitor. CT abdomen and pelvis showed no urolithiasis or evidence of recently passed genitourinary calculus; rind of periaortic soft tissue beginning of the infrarenal level extending to the external iliac arteries most compatible with periaortitis. Continue methylprednisolone. CRP elevated at 10.5. ESR elevated 100. Complement C3 78, complement C4 less than 8. RPR and FTA-ABS negative. EMILY, cryoglobulin pending. hep B surface AB positive. Message left with PMD 's office. 2. Abdominal pain. Resolved for now. Continue Protonix. GI recommendations appreciated. 3. Hypertension. Continue Norvasc and Cozaar. 4. Vertigo. Continue Antivert as needed. PT evaluation requested.
[2018-07-24 23:28] VITALS: RESP 20
[2018-07-25] MEDS ORDERED: Pantoprazole 40 mg EC Tab PO SCH (06:00)
[2018-07-25 06:35] LABS: HEMOGLOBIN 11.7 g/dL (14.0-18.0); LYMPH # 1.4 (1.2-3.4); LYMPH % 12.1 % (22.0-35.0); MEAN CELL VOLUME 90.6 fl (80.0-105.0); MEAN CORPUSCULAR HEMOGLOBIN 28.2 pg (25.0-35.0); MEAN CORPUSCULAR HGB CONC 31.1 g/dl (31.0-37.0); MEAN PLATELET VOLUME 12.8 fl (7.0-11.0); MONO # 0.6 (0.1-0.6); MONO % 5.1 % (1.0-6.0); RBC 4.15 10^6/uL (3.5-6.1); RED CELL DISTRIBUTION WIDTH 14.1 % (11.5-14.5); WHITE BLOOD COUNT 11.9 10^3/uL (4.5-11.0)
[2018-07-25 07:02] LABS: ALB/GLOB RATIO 0.9 (1.1-1.8); ALBUMIN 3.5 g/dL (3.0-4.8); ALT/SGPT 15 U/L (7-56); AST/SGOT 34 U/L (17-59); BLOOD UREA NITROGEN 33 mg/dL (7-21); CALCIUM 9.1 mg/dL (8.4-10.5); GFR NON-AFRICAN AMERICAN 50
[2018-07-25] MEDS: POLYETHYLENE GLYCOL 3350 17 GM/Dose PACKET PO SCH (09:49)
[2018-07-25] MEDS: MethylPREDNISolone 40 mg Vial IVP SCH (09:49)
[2018-07-25 10:35] LABS: HAV AB (IGM) Nonreactive (Nonreactive)
[2018-07-25 12:35] VITALS: BP 172/80; PULSE 59; TEMP 97.6
== END 2018-07-25 15:56 | disposition home or self-care (01) | DRG 346 ==
LOC: ED 15:41 → ERH 18:24 → 2RNO 20:51
PROVIDERS: ADMIT Hospitalist; ATTEND Internal Medicine
DX: I77.6 Arteritis, unspecified (principal); R10.13 Epigastric pain; I10 Essential (primary) hypertension; R35.1 Nocturia; R30.0 Dysuria; R42 Dizziness and giddiness; K59.00 Constipation, unspecified; K40.20 Bilateral inguinal hernia, without obstruction or gangrene, not specified as recurrent; Z87.891 Personal history of nicotine dependence; Z80.8 Family history of malignant neoplasm of other organs or systems

== ENCOUNTER 2018-08-02 16:21 | Emergency (ER) | payer MEDICAID, OTHER ==
[2018-08-02 16:24] VITALS: BMI 23.1
[2018-08-02 16:25] VITALS: TEMP 98.1; O2SAT 97
[2018-08-02] MEDS ORDERED: Labetalol 5mg/ml (4ml) IV STA (17:18)
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
[2018-08-02 17:27] VITALS: RESP 16
[2018-08-02] MEDS ORDERED: MethylPREDNISolone 40 mg Vial IVP ONE (17:35)
[2018-08-02 18:30] VITALS: BP 147/78; PULSE 57
--- NOTE | 2018-08-03 10:38 | CARD ---
APPROVED REPORT Date of service: 08/02/2018 EKG Measurement Heart [id number] <Conclusion> Normal sinus rhythm with sinus arrhythmia Possible Left atrial enlargement Borderline ECG
== END 2018-08-02 19:01 | disposition home or self-care (01) ==
LOC: ED 16:21
DX: M72.2 Plantar fascial fibromatosis (principal); I10 Essential (primary) hypertension; R42 Dizziness and giddiness; Z87.891 Personal history of nicotine dependence
CPT/HCPCS: 93005; 96374; 96375; 99285; J1885; J2920